=== PATIENT | male | born 1955 | race Caucasian/White ===

== ENCOUNTER 2019-12-09 15:42 | Inpatient (IN) | payer OTHER, SELFPAY ==
--- NOTE | ~2019-12-09 | CT_ITS ---
EXAMINATION: CT abdomen pelvis wo con DATE: 12/09/2019 19:25 INDICATION: Generalized abdominal pain TECHNIQUE: Computed tomography (CT) of the abdomen and pelvis was performed without intravenous contr ast. The dose-length product was 1687.28 mGy-cm. Automated exposure control and iterative reconstruct ion technique were employed. COMPARISON: No prior studies for comparison. FINDINGS: Lung bases are unremarkable. No significant pleural or pericardial effusion. Heart size nor mal. No significant vascular abnormality. No lymphadenopathy. There is bilateral perinephric and periureteral edema, suspicious for ascending urinary tract infecti on. Cannot exclude pyelonephritis. The liver, spleen, pancreas, adrenal glands are unremarkable. No h ydronephrosis. Bladder is unremarkable. No abnormal pelvic masses or fluid collections. No evidence f or appendicitis or diverticulitis. Gallbladder is present. No free air or free fluid. There are moderate degenerative changes of the lum bar spine and mild osteoarthritis of the hips. No acute osseous abnormality. IMPRESSION: 1. Bilateral perinephric and periureteral edema, suspicious for ascending urinary tract infection. Ca nnot exclude pyelonephritis. Reviewed, dictated and finalized at location A. TCHER IMPRESSION: 1. Bilateral perinephric and periureteral edema, suspicious for ascending urina ry tract infection. Cannot exclude pyelonephritis.
--- NOTE | ~2019-12-09 | US_ITS ---
EXAMINATION: US right upper quadrant EXAM DATE: 12/12/2019 09:55 INDICATION: Transaminitis. TECHNIQUE: Multiple grayscale and Doppler images of the abdomen right upper quadrant were obtained (b y a technologist who performed the scan) and subsequently reviewed. Correlation is made to CT abdomen 12/08/2019. FINDINGS: The pancreatic head and body are normal in appearance. The pancreatic tail is not visualized. The l iver has normal echogenicity and contour. There are no focal liver lesions identified. There is no evidence of intrahepatic biliary duct dilation. Portal venous flow was seen in the hepatopedal, nor mal direction and has normal Doppler waveform. No right-sided hydronephrosis. Common bile duct measures 5 mm, which is normal. The gallbladder wall is normal in thickness, with ex pected amount of distention. No sonographic evidence of pericholecystic fluid. There is no cholelit hiases. Technologist performing exam reports patient did not demonstrate sonographic Sands's sign. Please note that this sign is less reliable in patients who have received pain medication. IMPRESSION: 1. Unremarkable abdominal ultrasound exam. Reviewed, dictated and finalized at location A. ANIC FOREMAN
--- NOTE | ~2019-12-09 | XR_ITS ---
EXAMINATION: XR chest 2V 12/09/2019 18:10 INDICATION: Chills. Low-grade fever. PROCEDURE: 2 view chest COMPARISON: No prior studies for comparison. FINDINGS: The lungs are clear. The cardiomediastinal silhouette is within normal limits. There are no pleural effusions. There is no pneumothorax suspected. IMPRESSION: 1: NO ACUTE CARDIOPULMONARY DISEASE. Reviewed, dictated and finalized at location A. ERAGE MANAGER
--- NOTE | ~2019-12-09 | US_ITS ---
EXAMINATION: US renal BI EXAM DATE: 12/15/2019 08:50 INDICATION: Elevated creatinine. TECHNIQUE: Multiple grayscale and Doppler images of the kidneys were obtained (by a technologist who performed the scan) and subsequently reviewed. There is no prior study for comparison. FINDINGS: Right kidney: There is normal contour and echogenicity. It measures 14.6 x 6.5 x 6.5 centimeters. T here are no focal renal lesions identified. There is no hydronephrosis. Left kidney: There is normal contour and echogenicity. It measures 14.1 x 6.6 x 6.0 centimeters. Th ere are no focal renal lesions identified. There is no hydronephrosis. Bladder unremarkable. IMPRESSION: 1. Sonographically unremarkable kidneys. Reviewed, dictated and finalized at location A. ATIONAL REVIEW SERGEANT
[2019-12-09 15:59] VITALS: BP 215/80; PULSE 100; RESP 20; TEMP 37.8; O2SAT 97
--- NOTE | 2019-12-09 17:19 | ECG_ITS ---
Measurements Intervals [place] Rate: 97 P: -9 IA: 187 QRS: -3 QRSD: 177 T: -14 QT: 411 QTc: 524 Interpretive Statements SINUS RHYTHM RIGHT BUNDLE BRANCH BLOCK INFERIOR INFARCT, AGE INDETERMINATE ABNORMAL ECG Electronically Signed On 12-10-2019 7:59:04 TRANSPORTATION ASSOCIATE by Tom Heath D.O.
[2019-12-09 17:37] LABS: Basophils Absolute Auto 0.1 K/mm3 (0.0-0.1); Basophils Percent Auto 0.7 % (0.2-1.2); Eosinophils Absolute Auto 0.2 K/mm3 (0-0.3); Eosinophils Percent Auto 1.2 % (0-4.4); Hematocrit 37.5 % (42.0-52.0); Hemoglobin 12.6 g/dL (14.0-18.0); Immature Granulocyte Absolute 0.82 K/mm3 (0.00-0.031); Immature Granulocyte Percent A 5.1 % (0-0.5); Lymphocytes Percent Auto 8.7 % (18.3-44.2); Mean Corpuscular HGB Conc 33.6 g/dl (32-36); Mean Corpuscular Hemoglobin 28.6 pg (26-34); Mean Corpuscular Volume 85.2 fl (80-100); Mean Platelet Volume 9.2 fl (7.4-10.4); Monocytes Absolute Auto 1.7 K/mm3 (0.1-0.6); Monocytes Percent Auto 10.8 % (2.6-8.5); Neutrophils Absolute Auto 11.8 K/mm3 (1.3-6.7); Neutrophils Percent Auto 73.5 % (45.5-73.1); Platelet Count Result 222 k/mm3 (150-375); Red Cell Distribution Width 15.1 % (11.5-14.5)
[2019-12-09 17:54] LABS: Add Urine Microscopic? YES; Appearance Urine Cloudy (Clear); Bacteria Urine 3+ /hpf; Bilirubin Urine Negative (Negative); Blood Urine 3+ (Negative); Color Urine Yellow (Yellow); Glucose Urine UA Negative (Negative); Ketones Urine Negative (Negative); Leukocyte Esterase Ur 3+ LEU/UL (Negative); Mucus Urine Rare /lpf; Nitrate Urine Negative (Negative); Protein Urine 2+ mg/dL (Negative); RBC Urine >75 /hpf (0-2); Specific Grav Ur 1.016 (1.001-1.035); Squamous Epithelial Cell Urine Rare /hpf (Few); WBC Urine >75 /hpf
[2019-12-09 17:58] LABS: Alanine Aminotransferase 59 U/L (4-50); Albumin Level 3.5 g/dL (3.5-5.1); Alkaline Phosphatase 252 U/L (38-126); Aspartate Amino Transferase 60 U/L (17-59); Bilirubin,Total 1.8 mg/dL (0.2-1.3); Blood Urea Nitrogen 65 mg/dL (9-20); Calcium 9.4 mg/dL (8.4-10.2); Carbon Dioxide 19 mmol/L (22-30); Chloride 96 mmol/L (98-107); Estimated CRCL calculation 20 ml/min; Estimated Glomerular Filt Rate 11; Glucose 221 mg/dL (75-110); Potassium 4.9 mmol/L (3.4-5.0); Sodium 130 mmol/L (137-145)
--- NOTE | 2019-12-09 18:28 | ED.GENADULT ---
HPI - General Adult General Chief complaint: Unspecified Stated complaint: bodyaches Time Seen by Provider: 12/09/19 18:26 Source: patient and RN notes reviewed Mode of arrival: other Limitations: no limitations History of Present Illness HPI narrative: Pt is a 64 y/o male who presents to the ED with c/o severe body aches that began several days ago. Pt notes that his sx are aggravated by moving his body. He notes that his sx are the worst pain in his life. Pt states that if he leans forward, he feels like he is going to rupture. Pt notes that Thursday (12/04/19) morning, he woke up with chills and he put on extra clothes and blankets but could not warm up. He notes that Thursday (12/04/19) he drank a small glass of water with his medication and he vomited. Pt was recently started on Januvia d/t his A1C being elevated in October 2019. 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 Pt states that he has been drinking 5 Hour Energy drinks to get through the shifts and he drinks about 6-8 of the energy drinks per shift. He notes that he drinks lots of water. Pt had a kidney US in May 2019, but he has not heard the results. Pt also reports increased urinary frequency, urinary urgency, urinary retention, dry mouth, lower back pain, neck pain, bilateral shoulder pain, pain with inspiration, and otalgia, but denies SOB, nausea, diarrhea, cough, and dark colored urine. MD complaint: Body aches Onset (ago): day(s) (several) Pain Consistency: constant Associated symptoms: nausea/vomiting and other ( increased urinary frequency, urinary urgency, urinary retention, dry mouth, lower back pain, neck pain, bilateral shoulder pain, pain with inspiration, otalgia) Related Data Home Medications Medication Instructions Recorded Confirmed B Complex 100 mg BYMOUTH DAILY 12/09/19 12/09/19 ascorbic acid (vitamin C) 1 g PO DAILY 12/09/19 12/09/19 glimepiride 2 mg PO BID 12/09/19 12/09/19 lisinopril 20 mg PO DAILY 12/09/19 12/09/19 meloxicam 15 mg HS 12/09/19 12/09/19 metformin 1,000 mg PO BID 12/09/19 12/09/19 omeprazole 20 mg PO DAILY 12/09/19 12/09/19 sitagliptin [Januvia] 100 mg PO DAILY 12/09/19 12/09/19 vit F-xzkcwfae-redclgniknu 800 mg PO DAILY 12/09/19 12/09/19 Allergies Allergy/AdvReac Type Severity Reaction Status Date / Time amoxicillin [From Augmentin] Allergy Rash Verified 12/09/19 22:38 clavulanic acid Allergy Rash Verified 12/09/19 22:38 [From Augmentin] Review of Systems Review of Systems: All systems reviewed & are unremarkable except as noted in HPI and below ENT: Reports dry mouth, Reports otalgia and Reports neck pain Respiratory: Respiratory: Denies cough, Reports pain on inspiration and Denies dyspnea Gastrointestinal: Gastrointestinal: Denies diarrhea, Denies nausea and Reports vomiting Genitourinary: Genitourinary: Reports urinary frequency (increased), Reports urinary urgency and Reports other (Reports: urinary retention; Denies: dark colored urine) Musculoskeletal: Musculoskeletal: Reports back pain (lower), Reports myalgias and Reports other (bilateral shoulder pain) [facility] Past Medical History Medical History Arthritis Left inguinal hernia Peripheral neuropathy Staph infection left leg Type II diabetes mellitus Surgical History Surgical History Hx of tonsillectomy Family History Family History Father Hypertension Renal disease Other Family history of arthritis Family history of gout Social History Social History Smoking status: Never smoker Alcohol intake: never Drinks per week: 0 Gender identity (if verbalized by the patient): Male Spiritual care concerns: No Agree to blood products: Yes Exam Const: General: no acute distress, diaphoretic and ill appearing Nutri
[2019-12-09 19:01] LABS: Creatine Kinase 27 U/L (55-170)
[2019-12-09 19:29] LABS: Lactic Acid Reflex 0.9 mmol/L (0.7-2.1)
--- NOTE | 2019-12-09 19:32 | PC.NURSE ---
assumed care of patient. pt on the way to ct at this time, no needs stated
[2019-12-09 19:42] VITALS: BP 169/92; PULSE 96; RESP 16; TEMP 36.1; O2SAT 97
[2019-12-09] MEDS: SODIUM CHLORIDE 0.9% IV 1,000 ML 999 ML IV CONT (20:00)
--- NOTE | 2019-12-09 21:32 | PM.IMHP ---
H&P: HPI History of Present Illness Chief complaint: Body aches++ Narrative: This is a pleasant 64 year old Diabetic male who presented to the hospital with a complaint of chills, fever, and diffuse body aches since this past weekend. The patient woke up Thursday morning with severe chills and body aches. He also has noticed increased urinary urgency, frequency, and has developed mild dysuria. He denies any rashes, chest pain, or cough. He has diffuse pain with any movement. He denies any diarrhea, nausea, vomiting, rectal bleeding, or shortness of breath. He was evaluated in the ER tonight and found to be septic with fever and leukocytosis. His urinalysis was grossly abnormal. CT abd/pelvis demonstrated biilateral perinephric and periureteral edema. The patient was started on antibiotics and we have been asked to admit him to the hospital. He denies any other symptoms tonight. Review of Systems Review of Systems: All systems reviewed & are unremarkable except as noted in HPI and below PMFSH Past Medical History Medical History Arthritis Left inguinal hernia Peripheral neuropathy Staph infection left leg Type II diabetes mellitus Surgical History Surgical History Hx of tonsillectomy Family History Family History Father Hypertension Renal disease Other Family history of arthritis Family history of gout Social History Social History Smoking status: Never smoker Alcohol intake: never Drinks per week: 0 Gender identity (if verbalized by the patient): Male Spiritual care concerns: No Agree to blood products: Yes Meds Home Medications and Allergies Home Medications Medication Instructions Recorded Confirmed Type B Complex 100 mg BYMOUTH DAILY 12/09/19 12/09/19 History ascorbic acid (vitamin C) 1 g PO DAILY 12/09/19 12/09/19 History glimepiride 2 mg PO BID 12/09/19 12/09/19 History lisinopril 20 mg PO DAILY 12/09/19 12/09/19 History meloxicam 15 mg HS 12/09/19 12/09/19 History metformin 1,000 mg PO BID 12/09/19 12/09/19 History omeprazole 20 mg PO DAILY 12/09/19 12/09/19 History sitagliptin [Januvia] 100 mg PO DAILY 12/09/19 12/09/19 History vit B-jsnpwzkh-qwelekvcguy 800 mg PO DAILY 12/09/19 12/09/19 History Allergies Allergy/AdvReac Type Severity Reaction Status Date / Time amoxicillin [From Augmentin] Allergy Rash Verified 12/09/19 22:38 clavulanic acid Allergy Rash Verified 12/09/19 22:38 [From Augmentin] Vital Signs Vital Signs - 24 hr 12/09/19 15:59 12/09/19 19:42 Temperature 37.8 C H 36.1 C L Pulse Rate 100 96 Respiratory Rate 20 16 Blood Pressure 215/80 H 169/92 H Pulse Oximetry 97 97 Exam Const: General: cooperative, alert, awake and ill appearing Nutritional Appearance: obese morbidly obese Orientation/consciousness: patient oriented x3 HENMT: Head: normal to inspection General nose exam: Normal external nose present Face and sinus: normal facial exam Mouth: Yes Normal oral and palatal mucosa present and Yes oropharynx normal Eyes: Pupils: Equal, round and reactive pupils present EOM: EOMs intact bilaterally Neck: Neck: supple and no JVD Thyroid: thyroid normal Lymphatic: lymphadenopathy not noted Resp: Effort & Inspection: normal respiratory effort Auscultation: clear to auscultation bilaterally Cardio: Rate: regular rate Rhythm: regular rhythm Heart sounds: no murmurs GI: Inspection: normal to inspection Auscultation: normal bowel sounds Skin: General skin exam: normal color and no rashes or lesions noted Neuro: General: patient oriented x3 Cranial nerves: Yes CN's II-XII intact bilaterally and Yes Equal, round and reactive pupils present Speech: normal speech Motor exam (neuro): 5/5 motor strength present throughout Se
[2019-12-09 21:47] VITALS: BP 187/77; PULSE 98; RESP 18; TEMP 36.8; O2SAT 99
[2019-12-09 21:50] VITALS: BMI 47.1
--- NOTE | 2019-12-09 22:23 | ADMGEN ---
This patient, Nik Chan, was admitted to Medical Room 348-01. Patient/family oriented to hospital policies and general routines including ID bracelet, bed and alarms, visiting hours, pain management, procedures, bathroom and other care routines, personal items, smoking policy, room service/diet, and visiting hours. Valuables list has been completed. Information on how to activate the Rapid Response Team has been discussed. Patient/Family are encouraged to report perceived risks to care and to ask questions if they do not understand what they are told or what they should do.
[2019-12-09] MEDS: SODIUM CHLORIDE 0.9% IV 1,000 ML 125 ML IV CONT (23:23)
[2019-12-10 05:05] VITALS: RESP 18; TEMP 36.6
[2019-12-10 05:08] VITALS: BP 186/89; PULSE 97; RESP 18; TEMP 36.6; O2SAT 98
[2019-12-10] MEDS: hydrALAZINE HCL 20 MG/ML VIAL 10 MG IV PUSH ×2 (05:53→13:27)
[2019-12-10 06:05] LABS: Basophils Absolute Auto 0.1 K/mm3 (0.0-0.1); Basophils Percent Auto 0.5 % (0.2-1.2); Eosinophils Absolute Auto 0.1 K/mm3 (0-0.3); Eosinophils Percent Auto 0.6 % (0-4.4); Hematocrit 37.7 % (42.0-52.0); Hemoglobin 12.8 g/dL (14.0-18.0); Immature Granulocyte Percent A 5.4 % (0-0.5); Lymphocytes Absolute Auto 2.53 K/mm3 (0.9-3.2); Lymphocytes Percent Auto 13.7 % (18.3-44.2); Mean Corpuscular Hemoglobin 28.8 pg (26-34); Mean Corpuscular Volume 84.9 fl (80-100); Monocytes Percent Auto 10.6 % (2.6-8.5); Neutrophils Absolute Auto 12.8 K/mm3 (1.3-6.7); Neutrophils Percent Auto 69.2 % (45.5-73.1); Platelet Count Result 223 k/mm3 (150-375); Red Blood Count 4.44 M/mm3 (4.6-6.20); Red Cell Distribution Width 15.2 % (11.5-14.5); White Blood Count 18.5 K/mm3 (4.5-10.0)
[2019-12-10 06:25] LABS: Alanine Aminotransferase 60 U/L (4-50); Albumin Level 3.5 g/dL (3.5-5.1); Alkaline Phosphatase 213 U/L (38-126); Aspartate Amino Transferase 61 U/L (17-59); Bilirubin,Total 1.7 mg/dL (0.2-1.3); Blood Urea Nitrogen 63 mg/dL (9-20); Calcium 9.2 mg/dL (8.4-10.2); Carbon Dioxide 19 mmol/L (22-30); Chloride 97 mmol/L (98-107); Estimated CRCL calculation 21 ml/min; Estimated Glomerular Filt Rate 11; Glucose 81 mg/dL (75-110); Potassium 4.5 mmol/L (3.4-5.0); Sodium 132 mmol/L (137-145)
[2019-12-10] MEDS: SODIUM CHLORIDE 0.9% IV 1,000 ML 125 ML IV CONT ×3 (07:34→23:56)
[2019-12-10 07:40] VITALS: BP 182/81; PULSE 97; RESP 18; TEMP 36.6; O2SAT 100
[2019-12-10] MEDS: ACETAMINOPHEN 325 MG TABLET 650 MG PO ×2 (08:09→23:59)
[2019-12-10] MEDS: ENOXAPARIN 30 MG/0.3 ML SYRINGE SUB-Q (08:23)
[2019-12-10] MEDS: ASCORBIC ACID 500 MG TABLET 1000 MG PO (08:24)
[2019-12-10] MEDS: VITAMIN B COMPLEX CAPSULE 1 CAP PO (08:24)
[2019-12-10] MEDS: PANTOPRAZOLE 40 MG TABLET PO (08:24)
--- NOTE | 2019-12-10 08:57 | PM.IMPN ---
Progress Note: A&P Assessment and Plan (1) Complicated UTI (urinary tract infection): Code(s): N39.0 - Urinary tract infection, site not specified Status: Acute Assessment and Plan: WBC slightly increased this morning 18.5k today. Continue IV antibiotics IV fluid hydration for now Monitor urine output. Urine culture and blood cultures pending. (2) Sepsis: Qualifiers: Sepsis type: sepsis due to unspecified organism Sepsis acute organ dysfunction status: with acute organ dysfunction Severe sepsis acute organ dysfunction type: acute renal failure Acute renal failure type: unspecified Severe sepsis shock status: without septic shock Qualified Code(s): A41.9 - Sepsis, unspecified organism; R65.20 - Severe sepsis without septic shock; N17.9 - Acute kidney failure, unspecified Code(s): A41.9 - Sepsis, unspecified organism Status: Acute Assessment and Plan: Source appears to be urinary. Continue IV antibiotics. Urine and blood cultures pending. Monitor vital signs and urine output closely. (3) Leukocytosis: Qualifiers: Leukocytosis type: unspecified Qualified Code(s): D72.829 - Elevated white blood cell count, unspecified Code(s): D72.829 - Elevated white blood cell count, unspecified Status: Acute Assessment and Plan: Secondary to sepsis and UTI. WBC slightly elevated to 18.5k today Monitor CBCd. (4) Acute renal failure: Qualifiers: Acute renal failure type: unspecified Qualified Code(s): N17.9 - Acute kidney failure, unspecified Code(s): N17.9 - Acute kidney failure, unspecified Status: Acute Assessment and Plan: Likely secondary to poor perfusion. Cr slowly improving to 5.20 today. Continue IV fluids Consider renal ultrasound and nephrology consultation if no improvement/plateaued. Avoid nephrotoxic agents, Renally dose medications. (5) Transaminitis: Code(s): R74.0 - Nonspecific elevation of levels of transaminase and lactic acid dehydrogenase [LDH] Status: Acute Assessment and Plan: Likely secondary to sepsis. LFTs stable this morning Monitor LFTs. Consider checking hepatitis panel and RUQ ultrasound if liver enzymes do not improve. (6) Normocytic anemia: Code(s): D64.9 - Anemia, unspecified Status: Chronic Assessment and Plan: Likely anemia of chronic disease. No signs of acute blood loss. H&H stable at 12.8/37.7 Monitor H/H transfuse prn. (7) Metabolic acidosis with increased anion gap and reduced excretion of inorganic acids: Code(s): E87.2 - Acidosis Status: Acute Assessment and Plan: Secondary to acute renal failure and sepsis. Monitor acid-base status. (8) Type II diabetes mellitus: Qualifiers: Diabetes mellitus fpc insulin use: with terminal computer operator use Diabetes mellitus complication status: without complication Qualified Code(s): E11.9 - Type 2 diabetes mellitus without complications; Z79.4 - penitentiary (current) use of insulin Code(s): E11.9 - Type 2 diabetes mellitus without complications Status: Chronic Assessment and Plan: BGL 81 this morning. No acute issues Accuchecks ACHS, SSI Coverage, hypoglycemic protocol. Hold metformin secondary to acute renal failure. Monitor closely (9) Hypertension: Code(s): I10 - Essential (primary) hypertension Status: Acute Assessment and Plan: BP 180s systolic Hold home lisinopril due to ARF IV Hydralazine PRN Monitor closely If ARF improves, consider resuming lisinopril Additional P
[2019-12-10 09:34] LABS: Glucose Point of Care 91 (65-105)
[2019-12-10 12:30] LABS: Glucose Point of Care 121 (65-105)
[2019-12-10 13:22] VITALS: BP 195/92; PULSE 85; RESP 22; TEMP 36.6; O2SAT 98
[2019-12-10 13:53] LABS: Hematocrit 34.7 % (42.0-52.0); Hemoglobin 11.7 g/dL (14.0-18.0); Mean Corpuscular HGB Conc 33.7 g/dl (32-36); Mean Corpuscular Hemoglobin 28.9 pg (26-34); Mean Corpuscular Volume 85.7 fl (80-100); Mean Platelet Volume 9.4 fl (7.4-10.4); Platelet Count Result 212 k/mm3 (150-375); Red Blood Count 4.05 M/mm3 (4.6-6.20); Red Cell Distribution Width 15.4 % (11.5-14.5); White Blood Count 14.4 K/mm3 (4.5-10.0)
[2019-12-10 14:05] LABS: Alanine Aminotransferase 60 U/L (4-50); Albumin Level 3.3 g/dL (3.5-5.1); Alkaline Phosphatase 188 U/L (38-126); Aspartate Amino Transferase 63 U/L (17-59); Bilirubin,Total 1.5 mg/dL (0.2-1.3); Blood Urea Nitrogen 63 mg/dL (9-20); Calcium 8.9 mg/dL (8.4-10.2); Carbon Dioxide 18 mmol/L (22-30); Chloride 99 mmol/L (98-107); Estimated CRCL calculation 22 ml/min; Estimated Glomerular Filt Rate 12; Glucose 92 mg/dL (75-110); Potassium 4.5 mmol/L (3.4-5.0); Sodium 132 mmol/L (137-145)
[2019-12-10 14:42] VITALS: BP 167/79; PULSE 90; TEMP 36.2
[2019-12-10] MEDS: LORATADINE 10 MG TABLET PO (14:46)
[2019-12-10] MEDS: AMLODIPINE BESYLATE 5 MG TABLET PO (14:46)
[2019-12-10] MEDS: TRAMADOL HCL 50 MG TABLET PO ×2 (15:15→20:25)
[2019-12-10 15:35] LABS: Anisocytosis 2+ (NORMAL); Band Neutrophils Percent 3 % (0-6); Eosinophils Absolute Manual 0.28 K/mm3 (0.02-0.5); Eosinophils Percent Manual 2 % (0-4); Monocytes Absolute Manual 0.57 K/mm3 (0.1-0.90); Monocytes Percent Manual 4 % (3-9); Neutrophils Absolute Manual 11.23 K/mm3 (1.3-6.7); Neutrophils Percent Manual 75 % (46-73); Platelet Estimate Adequate (Adequate); Total Cells Counted 100
[2019-12-10 17:45] LABS: Glucose Point of Care 114 (65-105)
[2019-12-10 21:44] LABS: Glucose Point of Care 83 (65-105)
[2019-12-10 22:00] VITALS: BP 173/76; PULSE 96; RESP 16; TEMP 36.8; O2SAT 97
[2019-12-11] VITALS (8 sets, daily range): BP systolic 155–181; BP diastolic 70–81; PULSE 90–99; RESP 16–22; TEMP 36.6–36.7; O2SAT 97–98
[2019-12-11 06:01] LABS: Hematocrit 34.1 % (42.0-52.0); Hemoglobin 11.3 g/dL (14.0-18.0); Mean Corpuscular HGB Conc 33.1 g/dl (32-36); Mean Corpuscular Hemoglobin 28.5 pg (26-34); Mean Corpuscular Volume 86.1 fl (80-100); Mean Platelet Volume 9.3 fl (7.4-10.4); Platelet Count Result 229 k/mm3 (150-375); Red Blood Count 3.96 M/mm3 (4.6-6.20); Red Cell Distribution Width 15.7 % (11.5-14.5); White Blood Count 15.5 K/mm3 (4.5-10.0)
[2019-12-11 06:11] LABS: Alanine Aminotransferase 60 U/L (4-50); Albumin Level 3.1 g/dL (3.5-5.1); Alkaline Phosphatase 176 U/L (38-126); Aspartate Amino Transferase 56 U/L (17-59); Bilirubin,Total 1.2 mg/dL (0.2-1.3); Blood Urea Nitrogen 62 mg/dL (9-20); Calcium 8.1 mg/dL (8.4-10.2); Carbon Dioxide 16 mmol/L (22-30); Chloride 103 mmol/L (98-107); Estimated CRCL calculation 26 ml/min; Estimated Glomerular Filt Rate 14; Glucose 67 mg/dL (75-110); Magnesium 1.9 mg/dL (1.6-2.3); Potassium 4.5 mmol/L (3.4-5.0); Sodium 133 mmol/L (137-145)
[2019-12-11 07:10] LABS: Band Neutrophils Percent 5 % (0-6); Lymphocytes Absolute Manual 1.55 K/mm3 (1.1-4.5); Monocytes Absolute Manual 0.62 K/mm3 (0.1-0.90); Monocytes Percent Manual 4 % (3-9); Neutrophils Absolute Manual 13.33 K/mm3 (1.3-6.7); Neutrophils Percent Manual 81 % (46-73); Total Cells Counted 100
[2019-12-11 07:11] LABS: Anisocytosis 1+ (NORMAL); Platelet Estimate Adequate (Adequate)
[2019-12-11] MEDS: TRAMADOL HCL 50 MG TABLET PO (07:58)
[2019-12-11] MEDS: SODIUM CHLORIDE 0.9% IV 1,000 ML 125 ML IV CONT ×2 (08:00→18:35)
[2019-12-11] MEDS: ASCORBIC ACID 500 MG TABLET 1000 MG PO (08:10)
[2019-12-11] MEDS: LORATADINE 10 MG TABLET PO (08:10)
[2019-12-11] MEDS: PANTOPRAZOLE 40 MG TABLET PO (08:10)
[2019-12-11] MEDS: hydrALAZINE HCL 20 MG/ML VIAL 10 MG IV PUSH ×3 (08:11→22:34)
[2019-12-11] MEDS: ENOXAPARIN 30 MG/0.3 ML SYRINGE SUB-Q (08:11)
[2019-12-11] MEDS: AMLODIPINE BESYLATE 5 MG TABLET PO (08:11)
[2019-12-11] MEDS: VITAMIN B COMPLEX CAPSULE 1 CAP PO (08:11)
[2019-12-11 08:22] LABS: Glucose Point of Care 70 (65-105)
--- NOTE | 2019-12-11 11:40 | PM.IMPN ---
Progress Note: A&P Assessment and Plan (1) Complicated UTI (urinary tract infection): Code(s): N39.0 - Urinary tract infection, site not specified Status: Acute Assessment and Plan: WBC went from 14.4k yesterday afternoon to 15.5k this morning. UC grew E. Coli; gamble-sensitive including Rocephin. Blood cultures grew gram negative bacilli Continue IV antibiotics IV fluid hydration for now, decreased to 75 ml/hr. consider stopping tomorrow Monitor urine output. (2) Sepsis: Qualifiers: Sepsis type: sepsis due to unspecified organism Sepsis acute organ dysfunction status: with acute organ dysfunction Severe sepsis acute organ dysfunction type: acute renal failure Acute renal failure type: unspecified Severe sepsis shock status: without septic shock Qualified Code(s): A41.9 - Sepsis, unspecified organism; R65.20 - Severe sepsis without septic shock; N17.9 - Acute kidney failure, unspecified Code(s): A41.9 - Sepsis, unspecified organism Status: Acute Assessment and Plan: Source appears to be urinary. Continue IV antibiotics, IVF Monitor vital signs and urine output closely. (3) Leukocytosis: Qualifiers: Leukocytosis type: unspecified Qualified Code(s): D72.829 - Elevated white blood cell count, unspecified Code(s): D72.829 - Elevated white blood cell count, unspecified Status: Acute Assessment and Plan: Secondary to sepsis and UTI. WBC 15.5k today Monitor CBCd. (4) Acute renal failure: Qualifiers: Acute renal failure type: unspecified Qualified Code(s): N17.9 - Acute kidney failure, unspecified Code(s): N17.9 - Acute kidney failure, unspecified Status: Acute Assessment and Plan: Likely secondary to poor perfusion. Cr slowly improving to 4.20 today, slow improvement Continue IV fluids Consider renal ultrasound and nephrology consultation if no improvement/plateaued. Avoid nephrotoxic agents, Renally dose medications. Lisinopril held at this time - monitor BP (5) Transaminitis: Code(s): R74.0 - Nonspecific elevation of levels of transaminase and lactic acid dehydrogenase [LDH] Status: Acute Assessment and Plan: Likely secondary to sepsis. LFTs slightly improved Monitor LFTs. Consider checking hepatitis panel and RUQ ultrasound if liver enzymes do not improve. (6) Normocytic anemia: Code(s): D64.9 - Anemia, unspecified Status: Chronic Assessment and Plan: Likely anemia of chronic disease. No signs of acute blood loss. H&H stable at 11.3/34.1; lowered likely due to dilutional effect from IVF Monitor H/H transfuse prn. (7) Metabolic acidosis with increased anion gap and reduced excretion of inorganic acids: Code(s): E87.2 - Acidosis Status: Acute Assessment and Plan: Secondary to acute renal failure and sepsis. Monitor acid-base status. (8) Type II diabetes mellitus: Qualifiers: Diabetes mellitus termite treater helper insulin use: with usp use Diabetes mellitus complication status: without complication Qualified Code(s): E11.9 - Type 2 diabetes mellitus without complications; Z79.4 - oysterman (current) use of insulin Code(s): E11.9 - Type 2 diabetes mellitus without complications Status: Chronic Assessment and Plan: BGL 81 this morning. No acute issues Accuchecks ACHS, SSI Coverage, hypoglycemic protocol. Hold metformin secondary to acute renal failure. Monitor closely (9) Hypertension: Code(s): I10 - Essential (primary) hypertension Status: Acute Assessment and Plan: BP 150-170s systolic
[2019-12-11 11:43] LABS: Glucose Point of Care 78 (65-105)
[2019-12-11 11:43] LABS: Glucose Point of Care 65 (65-105)
[2019-12-11 11:43] LABS: Glucose Point of Care 68 (65-105)
[2019-12-11] MEDS: TAMSULOSIN HCL 0.4 MG CAPSULE PO (12:05)
[2019-12-11 16:51] LABS: Glucose Point of Care 91 (65-105)
[2019-12-11 18:59] LABS: Glucose Point of Care 132 (65-105)
[2019-12-11 23:19] LABS: Glucose Point of Care 137 (65-105)
[2019-12-12 01:35] VITALS: TEMP 37.7
[2019-12-12] MEDS: TRAMADOL HCL 50 MG TABLET PO (02:32)
[2019-12-12 06:00] VITALS: BP 151/73; PULSE 100; RESP 16; TEMP 36.2; O2SAT 97
[2019-12-12 07:27] LABS: Basophils Absolute Auto 0.1 K/mm3 (0.0-0.1); Basophils Percent Auto 0.4 % (0.2-1.2); Eosinophils Absolute Auto 0.2 K/mm3 (0-0.3); Eosinophils Percent Auto 1.2 % (0-4.4); Hematocrit 34.9 % (42.0-52.0); Hemoglobin 11.8 g/dL (14.0-18.0); Immature Granulocyte Absolute 0.74 K/mm3 (0.00-0.031); Immature Granulocyte Percent A 5.3 % (0-0.5); Lymphocytes Absolute Auto 1.57 K/mm3 (0.9-3.2); Lymphocytes Percent Auto 11.2 % (18.3-44.2); Mean Corpuscular HGB Conc 33.8 g/dl (32-36); Mean Corpuscular Hemoglobin 28.9 pg (26-34); Mean Corpuscular Volume 85.5 fl (80-100); Monocytes Percent Auto 7.3 % (2.6-8.5); Neutrophils Absolute Auto 10.5 K/mm3 (1.3-6.7); Neutrophils Percent Auto 74.6 % (45.5-73.1); Platelet Count Result 270 k/mm3 (150-375); Red Blood Count 4.08 M/mm3 (4.6-6.20); Red Cell Distribution Width 15.5 % (11.5-14.5)
[2019-12-12 07:30] LABS: Alanine Aminotransferase 62 U/L (4-50); Albumin Level 3.4 g/dL (3.5-5.1); Alkaline Phosphatase 218 U/L (38-126); Aspartate Amino Transferase 47 U/L (17-59); Blood Urea Nitrogen 54 mg/dL (9-20); Calcium 8.6 mg/dL (8.4-10.2); Carbon Dioxide 16 mmol/L (22-30); Chloride 103 mmol/L (98-107); Estimated CRCL calculation 32 ml/min; Estimated Glomerular Filt Rate 18; Glucose 155 mg/dL (75-110); Sodium 133 mmol/L (137-145)
[2019-12-12 08:32] LABS: Hepatitis B Surface Antigen Negative (Negative)
[2019-12-12 08:38] LABS: HAV RESULT Negative (Negative); Hepatitis B Core IgM Result Negative (Negative)
[2019-12-12] MEDS: SODIUM CHLORIDE 0.9% IV 1,000 ML 125 ML IV CONT (08:49)
[2019-12-12 08:50] LABS: Hepatitis C Virus Antibody Negative (Negative)
[2019-12-12] MEDS: VITAMIN B COMPLEX CAPSULE 1 CAP PO (10:24)
[2019-12-12] MEDS: ASCORBIC ACID 500 MG TABLET 1000 MG PO (10:24)
[2019-12-12] MEDS: PANTOPRAZOLE 40 MG TABLET PO (10:24)
[2019-12-12] MEDS: AMLODIPINE BESYLATE 5 MG TABLET PO (10:25)
[2019-12-12] MEDS: LORATADINE 10 MG TABLET PO (10:25)
[2019-12-12] MEDS: TAMSULOSIN HCL 0.4 MG CAPSULE PO (10:25)
[2019-12-12] MEDS: ENOXAPARIN 30 MG/0.3 ML SYRINGE SUB-Q (10:25)
[2019-12-12 10:47] LABS: Glucose Point of Care 136 (65-105)
--- NOTE | 2019-12-12 11:27 | P.PNIM_ITS ---
Progress Note: A&P Assessment and Plan (1) Complicated UTI (urinary tract infection): Code(s): N39.0 - Urinary tract infection, site not specified Status: Acute Assessment and Plan: WBC down to 14.0k this morning. UC and one bottle of BC grew E. Coli; gamble- sensitive including Rocephin * Continue IV antibiotics for now; consider 1-2 more days IV antibiotics and switching to oral abx to complete treatment * IVF stopped today. Drinking water okay. * Monitor urine output. Urine output has been adequate thus far (2) Sepsis: Qualifiers: Sepsis type: sepsis due to unspecified organism Sepsis acute organ dysfunction status: with acute organ dysfunction Severe sepsis acute organ dysfunction type: acute renal failure Acute renal failure type: unspecified Severe sepsis shock status: without septic shock Qualified Code(s): A41.9 - Sepsis, unspecified organism; R65.20 - Severe sepsis without septic shock; N17.9 - Acute kidney failure, unspecified Code(s): A41.9 - Sepsis, unspecified organism Status: Acute Assessment and Plan: Source appears to be urinary. * Continue IV antibiotics. IVF stopped today * Monitor vital signs and urine output closely. (3) Leukocytosis: Qualifiers: Leukocytosis type: unspecified Qualified Code(s): D72.829 - Elevated white blood cell count, unspecified Code(s): D72.829 - Elevated white blood cell count, unspecified Status: Acute Assessment and Plan: Secondary to sepsis and UTI. WBC 14.0k today * Monitor CBCd. (4) Acute renal failure: Qualifiers: Acute renal failure type: unspecified Qualified Code(s): N17.9 - Acute kidney failure, unspecified Code(s): N17.9 - Acute kidney failure, unspecified Status: Acute Assessment and Plan: Likely secondary to poor perfusion. Cr slowly improving to 3.40 today, slow improvement * Encouraged PO fluids. Consider resuming if worsening Cr or plateaued * Consider renal ultrasound and nephrology consultation if no improvement/plateaued. * Avoid nephrotoxic agents, Renally dose medications. * Lisinopril held at this time - monitor BP (5) Transaminitis: Code(s): R74.0 - Nonspecific elevation of levels of transaminase and lactic acid d ehydrogenase [LDH] Status: Acute Assessment and Plan: Likely secondary to sepsis. LFTs slightly improved * Monitor LFTs. * US RUQ is unremarkable; hepatitis panel negative * Likely follow up with PCP if no improvement by discharge (6) Normocytic anemia: Code(s): D64.9 - Anemia, unspecified Status: Chronic Assessment and Plan: Likely anemia of chronic disease. No signs of acute blood loss. H&H stable at 11.8/34.9 * Monitor H/H * transfuse prn. (7) Metabolic acidosis with increased anion gap and reduced excretion of inorganic acids: Code(s): E87.2 - Acidosis Status: Acute Assessment and Plan: Secondary to acute renal failure and sepsis. * Monitor acid-base status. (8) Type II diabetes mellitus: Qualifiers: Diabetes mellitus vermin exterminator insulin use: with vermin exterminator use Diabetes mellitus complication status: without complication Qualified Code(s): E11.9 - Type 2 diabetes mellitus without complications; Z79.4 - exterminator (current) use of insulin Co
--- NOTE | 2019-12-12 11:27 | PM.IMPN ---
Progress Note: A&P Assessment and Plan (1) Complicated UTI (urinary tract infection): Code(s): N39.0 - Urinary tract infection, site not specified Status: Acute Assessment and Plan: WBC down to 14.0k this morning. UC and one bottle of BC grew E. Coli; gamble-sensitive including Rocephin Continue IV antibiotics for now; consider 1-2 more days IV antibiotics and switching to oral abx to complete treatment IVF stopped today. Drinking water okay. Monitor urine output. Urine output has been adequate thus far (2) Sepsis: Qualifiers: Sepsis type: sepsis due to unspecified organism Sepsis acute organ dysfunction status: with acute organ dysfunction Severe sepsis acute organ dysfunction type: acute renal failure Acute renal failure type: unspecified Severe sepsis shock status: without septic shock Qualified Code(s): A41.9 - Sepsis, unspecified organism; R65.20 - Severe sepsis without septic shock; N17.9 - Acute kidney failure, unspecified Code(s): A41.9 - Sepsis, unspecified organism Status: Acute Assessment and Plan: Source appears to be urinary. Continue IV antibiotics. IVF stopped today Monitor vital signs and urine output closely. (3) Leukocytosis: Qualifiers: Leukocytosis type: unspecified Qualified Code(s): D72.829 - Elevated white blood cell count, unspecified Code(s): D72.829 - Elevated white blood cell count, unspecified Status: Acute Assessment and Plan: Secondary to sepsis and UTI. WBC 14.0k today Monitor CBCd. (4) Acute renal failure: Qualifiers: Acute renal failure type: unspecified Qualified Code(s): N17.9 - Acute kidney failure, unspecified Code(s): N17.9 - Acute kidney failure, unspecified Status: Acute Assessment and Plan: Likely secondary to poor perfusion. Cr slowly improving to 3.40 today, slow improvement Encouraged PO fluids. Consider resuming if worsening Cr or plateaued Consider renal ultrasound and nephrology consultation if no improvement/plateaued. Avoid nephrotoxic agents, Renally dose medications. Lisinopril held at this time - monitor BP (5) Transaminitis: Code(s): R74.0 - Nonspecific elevation of levels of transaminase and lactic acid dehydrogenase [LDH] Status: Acute Assessment and Plan: Likely secondary to sepsis. LFTs slightly improved Monitor LFTs. US RUQ is unremarkable; hepatitis panel negative Likely follow up with PCP if no improvement by discharge (6) Normocytic anemia: Code(s): D64.9 - Anemia, unspecified Status: Chronic Assessment and Plan: Likely anemia of chronic disease. No signs of acute blood loss. H&H stable at 11.8/34.9 Monitor H/H transfuse prn. (7) Metabolic acidosis with increased anion gap and reduced excretion of inorganic acids: Code(s): E87.2 - Acidosis Status: Acute Assessment and Plan: Secondary to acute renal failure and sepsis. Monitor acid-base status. (8) Type II diabetes mellitus: Qualifiers: Diabetes mellitus long term care social worker insulin use: with alf use Diabetes mellitus complication status: without complication Qualified Code(s): E11.9 - Type 2 diabetes mellitus without complications; Z79.4 - truck terminal manager (current) use of insulin Code(s): E11.9 - Type 2 diabetes mellitus without complications Status: Chronic Assessment and Plan: BGL 136 this morning. No acute issues Accuchecks ACHS, SSI Coverage, hypoglycemic protocol. Hold metformin secondary to acute renal failure. Monitor closely (9) Hypertension: Code(s): I10 - Essential (primary) hypert
[2019-12-12 13:02] LABS: Glucose Point of Care 166 (65-105)
[2019-12-12 14:00] VITALS: BP 151/76; PULSE 94; RESP 16; TEMP 36.4; O2SAT 97
[2019-12-12 18:26] LABS: Glucose Point of Care 146 (65-105)
[2019-12-12 22:00] VITALS: BP 156/69; PULSE 91; RESP 16; TEMP 37; O2SAT 98
[2019-12-12 22:07] LABS: Glucose Point of Care 223 (65-105)
[2019-12-13 06:00] VITALS: BP 165/77; PULSE 94; RESP 16; TEMP 36.8; O2SAT 97
[2019-12-13] MEDS: ACETAMINOPHEN 325 MG TABLET 650 MG PO (06:58)
[2019-12-13 07:37] LABS: Basophils Absolute Auto 0.1 K/mm3 (0.0-0.1); Basophils Percent Auto 0.6 % (0.2-1.2); Eosinophils Absolute Auto 0.2 K/mm3 (0-0.3); Eosinophils Percent Auto 1.4 % (0-4.4); Hematocrit 33.3 % (42.0-52.0); Hemoglobin 11.2 g/dL (14.0-18.0); Immature Granulocyte Absolute 0.55 K/mm3 (0.00-0.031); Immature Granulocyte Percent A 3.9 % (0-0.5); Lymphocytes Absolute Auto 1.74 K/mm3 (0.9-3.2); Lymphocytes Percent Auto 12.3 % (18.3-44.2); Mean Corpuscular HGB Conc 33.6 g/dl (32-36); Mean Corpuscular Hemoglobin 29.6 pg (26-34); Mean Corpuscular Volume 87.9 fl (80-100); Mean Platelet Volume 8.9 fl (7.4-10.4); Monocytes Percent Auto 7.2 % (2.6-8.5); Neutrophils Absolute Auto 10.5 K/mm3 (1.3-6.7); Neutrophils Percent Auto 74.6 % (45.5-73.1); Platelet Count Result 300 k/mm3 (150-375); Red Blood Count 3.79 M/mm3 (4.6-6.20); Red Cell Distribution Width 15.6 % (11.5-14.5); White Blood Count 14.1 K/mm3 (4.5-10.0)
[2019-12-13 07:38] LABS: Alanine Aminotransferase 48 U/L (4-50); Albumin Level 3.2 g/dL (3.5-5.1); Alkaline Phosphatase 196 U/L (38-126); Aspartate Amino Transferase 32 U/L (17-59); Bilirubin,Total 0.8 mg/dL (0.2-1.3); Blood Urea Nitrogen 50 mg/dL (9-20); Calcium 8.9 mg/dL (8.4-10.2); Carbon Dioxide 18 mmol/L (22-30); Chloride 102 mmol/L (98-107); Estimated CRCL calculation 40 ml/min; Estimated Glomerular Filt Rate 24; Glucose 171 mg/dL (75-110); Potassium 4.8 mmol/L (3.4-5.0); Sodium 131 mmol/L (137-145)
[2019-12-13 08:14] LABS: Glucose Point of Care 165 (65-105)
[2019-12-13] MEDS: LORATADINE 10 MG TABLET PO (08:36)
[2019-12-13] MEDS: TAMSULOSIN HCL 0.4 MG CAPSULE PO (08:36)
[2019-12-13] MEDS: PANTOPRAZOLE 40 MG TABLET PO (08:36)
[2019-12-13] MEDS: ENOXAPARIN 30 MG/0.3 ML SYRINGE SUB-Q (08:36)
[2019-12-13] MEDS: VITAMIN B COMPLEX CAPSULE 1 CAP PO (08:36)
[2019-12-13] MEDS: AMLODIPINE BESYLATE 5 MG TABLET PO (08:36)
[2019-12-13] MEDS: ASCORBIC ACID 500 MG TABLET 1000 MG PO (08:37)
[2019-12-13] MEDS: INSULIN ASPART (*BKC) 100 UNITS/ML SUB-Q ×2 (12:44→18:34)
[2019-12-13 13:00] LABS: Glucose Point of Care 220 (65-105)
[2019-12-13] MEDS: SODIUM CHLORIDE NASAL GEL 14.1 GM 1 APPLIC NASAL (14:22)
[2019-12-13 15:00] VITALS: BP 166/72; PULSE 85; RESP 20; TEMP 36.2; O2SAT 98
--- NOTE | 2019-12-13 16:11 | PM.IMPN ---
Progress Note: A&P Assessment and Plan (1) Sepsis: Qualifiers: Sepsis type: sepsis due to unspecified organism Sepsis acute organ dysfunction status: with acute organ dysfunction Severe sepsis acute organ dysfunction type: acute renal failure Acute renal failure type: unspecified Severe sepsis shock status: without septic shock Qualified Code(s): A41.9 - Sepsis, unspecified organism; R65.20 - Severe sepsis without septic shock; N17.9 - Acute kidney failure, unspecified Code(s): A41.9 - Sepsis, unspecified organism Status: Acute Assessment and Plan: Source appears to be urinary. Continue IV antibiotics. Normal vitals, other than leukocytosis still. Afebrile, nontachycardic, normal RR and oxygenation and slightly elevated BP. Monitor vital signs and urine output closely. (2) Complicated UTI (urinary tract infection): Code(s): N39.0 - Urinary tract infection, site not specified Status: Acute Assessment and Plan: WBC stable at 14,100 this morning. UC and one bottle of BC grew E. Coli; gamble-sensitive including Rocephin Continue IV antibiotics for now; Day #5, consider 1-2 more days IV antibiotics and switching to oral abx to complete treatment In the last 24 hours he has drank 8,220 mL of fluids. Monitor urine output. Urine output has been adequate thus far (3) Acute renal failure: Qualifiers: Acute renal failure type: unspecified Qualified Code(s): N17.9 - Acute kidney failure, unspecified Code(s): N17.9 - Acute kidney failure, unspecified Status: Acute Assessment and Plan: Likely secondary to poor perfusion. Cr slowly improving to 2.70 today, continued improvement Encouraged PO fluids. Consider renal ultrasound and nephrology consultation if no improvement/plateaued. Avoid nephrotoxic agents, Renally dose medications. Lisinopril held at this time - monitor BP (4) Leukocytosis: Qualifiers: Leukocytosis type: unspecified Qualified Code(s): D72.829 - Elevated white blood cell count, unspecified Code(s): D72.829 - Elevated white blood cell count, unspecified Status: Acute Assessment and Plan: Secondary to sepsis and UTI. Still elevated at WBC 14,100 today. Continue IV antibiotics. Monitor CBCd. (5) Metabolic acidosis with increased anion gap and reduced excretion of inorganic acids: Code(s): E87.2 - Acidosis Status: Acute Assessment and Plan: Secondary to acute renal failure and sepsis. Monitor acid-base status. (6) Transaminitis: Code(s): R74.0 - Nonspecific elevation of levels of transaminase and lactic acid dehydrogenase [LDH] Status: Acute Assessment and Plan: Likely secondary to sepsis. LFTs slightly improved AST/ALT normalized. Alk Phos still slightly elevated at 196. Monitor LFTs. US RUQ is unremarkable; hepatitis panel negative Likely follow up with PCP if no improvement by discharge (7) Normocytic anemia: Code(s): D64.9 - Anemia, unspecified Status: Chronic Assessment and Plan: Likely anemia of chronic disease. No signs of acute blood loss. H&H stable at 11.2/33.3% Monitor H/H transfuse prn. (8) Type II diabetes mellitus: Qualifiers: Diabetes mellitus terminal gauger insulin use: with terminal gauger use Diabetes mellitus complication status: without complication Qualified Code(s): E11.9 - Type 2 diabetes mellitus without complications; Z79.4 - FPC (current) use of insulin Code(s): E11.9 - Type 2 diabetes mellitus without complications Status: Chronic Assessment and Plan: BGL 171 this morning. No acute issues Hold metformi
[2019-12-13 18:20] LABS: Glucose Point of Care 266 (65-105)
[2019-12-13 20:17] VITALS: BP 181/65; PULSE 86; RESP 16; TEMP 36.4; O2SAT 98
[2019-12-13 20:23] VITALS: BP 151/61
[2019-12-13 21:36] LABS: Glucose Point of Care 250 (65-105)
[2019-12-14 04:51] VITALS: BP 156/69; PULSE 91; RESP 16; TEMP 36.4; O2SAT 97
[2019-12-14 06:18] LABS: Alanine Aminotransferase 47 U/L (4-50); Albumin Level 3.4 g/dL (3.5-5.1); Alkaline Phosphatase 193 U/L (38-126); Aspartate Amino Transferase 30 U/L (17-59); Bilirubin,Total 0.7 mg/dL (0.2-1.3); Blood Urea Nitrogen 49 mg/dL (9-20); Calcium 8.7 mg/dL (8.4-10.2); Carbon Dioxide 19 mmol/L (22-30); Chloride 103 mmol/L (98-107); Estimated CRCL calculation 45 ml/min; Estimated Glomerular Filt Rate 28; Glucose 185 mg/dL (75-110); Potassium 4.8 mmol/L (3.4-5.0); Sodium 133 mmol/L (137-145)
[2019-12-14 06:19] LABS: Basophils Absolute Auto 0.1 K/mm3 (0.0-0.1); Basophils Percent Auto 0.4 % (0.2-1.2); Eosinophils Absolute Auto 0.3 K/mm3 (0-0.3); Hematocrit 32.7 % (42.0-52.0); Hemoglobin 10.9 g/dL (14.0-18.0); Immature Granulocyte Absolute 0.36 K/mm3 (0.00-0.031); Immature Granulocyte Percent A 2.7 % (0-0.5); Lymphocytes Absolute Auto 1.79 K/mm3 (0.9-3.2); Lymphocytes Percent Auto 13.6 % (18.3-44.2); Mean Corpuscular HGB Conc 33.3 g/dl (32-36); Mean Corpuscular Hemoglobin 28.8 pg (26-34); Mean Corpuscular Volume 86.3 fl (80-100); Mean Platelet Volume 9.2 fl (7.4-10.4); Monocytes Percent Auto 7.7 % (2.6-8.5); Neutrophils Absolute Auto 9.7 K/mm3 (1.3-6.7); Neutrophils Percent Auto 73.6 % (45.5-73.1); Platelet Count Result 363 k/mm3 (150-375); Red Blood Count 3.79 M/mm3 (4.6-6.20); Red Cell Distribution Width 15.1 % (11.5-14.5); White Blood Count 13.2 K/mm3 (4.5-10.0)
[2019-12-14 06:33] LABS: Hemoglobin A1C 8.2 % (<5.7)
[2019-12-14] MEDS: ACETAMINOPHEN 325 MG TABLET 650 MG PO ×2 (09:16→13:45)
[2019-12-14] MEDS: ENOXAPARIN 30 MG/0.3 ML SYRINGE SUB-Q (09:16)
[2019-12-14] MEDS: AMLODIPINE BESYLATE 5 MG TABLET PO (09:18)
[2019-12-14] MEDS: LORATADINE 10 MG TABLET PO (09:18)
[2019-12-14] MEDS: ASCORBIC ACID 500 MG TABLET 1000 MG PO (09:18)
[2019-12-14] MEDS: PANTOPRAZOLE 40 MG TABLET PO (09:19)
[2019-12-14] MEDS: TAMSULOSIN HCL 0.4 MG CAPSULE PO ×2 (09:19→21:22)
[2019-12-14] MEDS: VITAMIN B COMPLEX CAPSULE 1 CAP PO (09:19)
[2019-12-14 10:35] LABS: Glucose Point of Care 176 (65-105)
[2019-12-14 12:58] LABS: Glucose Point of Care 251 (65-105)
[2019-12-14] MEDS: INSULIN ASPART (*BKC) 100 UNITS/ML SUB-Q ×2 (13:46→18:12)
[2019-12-14 14:00] VITALS: BP 152/65; PULSE 88; RESP 20; TEMP 36.4; O2SAT 95
--- NOTE | 2019-12-14 16:40 | PM.IMPN ---
Progress Note: A&P Assessment and Plan (1) Sepsis: Qualifiers: Acute renal failure type: unspecified Sepsis acute organ dysfunction status: with acute organ dysfunction Sepsis type: sepsis due to unspecified organism Severe sepsis acute organ dysfunction type: acute renal failure Severe sepsis shock status: without septic shock Qualified Code(s): A41.9 - Sepsis, unspecified organism; R65.20 - Severe sepsis without septic shock; N17.9 - Acute kidney failure, unspecified Code(s): A41.9 - Sepsis, unspecified organism Status: Acute Assessment and Plan: Source appears to be urinary. Continue IV antibiotics. Normal vitals, other than leukocytosis still. Afebrile, nontachycardic, normal RR and oxygenation and slightly elevated BP. Monitor vital signs and urine output closely. (2) Complicated UTI (urinary tract infection): Code(s): N39.0 - Urinary tract infection, site not specified Status: Acute Assessment and Plan: WBC decreased slightly to 13,200 this morning. UC and one bottle of BC grew E. Coli; gamble-sensitive including Rocephin Continue IV antibiotics for now; Day #6, consider 1-2 more days IV antibiotics and switching to oral abx to complete treatment In the last 24 hours he has drank 6,280 mL of fluids. Monitor urine output. Urine output has been adequate thus far (3) Acute renal failure: Qualifiers: Acute renal failure type: unspecified Qualified Code(s): N17.9 - Acute kidney failure, unspecified Code(s): N17.9 - Acute kidney failure, unspecified Status: Acute Assessment and Plan: Likely secondary to poor perfusion. Cr slowly improving to 2.40 today, continued improvement Encouraged PO fluids. Nephrology was consulted and ordered a renal US and further kidney testing. Avoid nephrotoxic agents, Renally dose medications. Lisinopril held at this time - monitor BP (4) Leukocytosis: Qualifiers: Leukocytosis type: unspecified Qualified Code(s): D72.829 - Elevated white blood cell count, unspecified Code(s): D72.829 - Elevated white blood cell count, unspecified Status: Acute Assessment and Plan: Secondary to sepsis and UTI. Still elevated at WBC 13,200 today. Continue IV antibiotics. Monitor CBCd. (5) Metabolic acidosis with increased anion gap and reduced excretion of inorganic acids: Code(s): E87.2 - Acidosis Status: Acute Assessment and Plan: Secondary to acute renal failure and sepsis. Monitor acid-base status. (6) Transaminitis: Code(s): R74.0 - Nonspecific elevation of levels of transaminase and lactic acid dehydrogenase [LDH] Status: Acute Assessment and Plan: Likely secondary to sepsis. LFTs slightly improved AST/ALT normalized. Alk Phos still slightly elevated at 193. Monitor LFTs. US RUQ is unremarkable; hepatitis panel negative Likely follow up with PCP if no improvement by discharge (7) Normocytic anemia: Code(s): D64.9 - Anemia, unspecified Status: Chronic Assessment and Plan: Likely anemia of chronic disease. No signs of acute blood loss. H&H stable at 10.2/32.7% Contniue monitor H/H. Transfuse prn. (8) Type II diabetes mellitus: Qualifiers: Diabetes mellitus complication status: without complication Diabetes mellitus fpc insulin use: with meterman use Qualified Code(s): E11.9 - Type 2 diabetes mellitus without complications; Z79.4 - halfway (current) use of insulin Code(s): E11.9 - Type 2 diabetes mellitus without complications Status: Chronic Assessment and Plan: BGL 185 this morning. No acute issues
--- NOTE | 2019-12-14 16:48 | PM.CNNEP ---
Assessment and Plan Assessment and plan (1) Acute renal failure: Qualifiers: Acute renal failure type: unspecified Qualified Code(s): N17.9 - Acute kidney failure, unspecified Code(s): N17.9 - Acute kidney failure, unspecified Status: Acute Assessment and Plan: the patient has acute kidney injury. This is most likely due to infection. Urinary retention may be playing a role , however the CT did not show significant bladder distention or hydronephrosis. He did have bilateral changes consistent with Upper urinary tract infection. There are other causes of acute kidney injury however his renal function has improved with fluids and antibiotics so I do not think we need to look for other issues at this point. He did have proteinuria. This could come with an active urinary tract infection. However he should have evaluation for chronic diabetic nephropathy after this is all over. He does have nocturia which is substantial. He probably has benign prostatic hypertrophy. I will place him on tamsulosin and we can check a postvoid residual to see where we are with that. I talked with BRIJESH Garcia. I suggested that he should probably see a urologist as an outpatient. (2) Complicated UTI (urinary tract infection): Code(s): N39.0 - Urinary tract infection, site not specified Status: Acute Assessment and Plan: He grew E coli in blood in urine. He is on antibiotics. He feels better. (3) Metabolic acidosis with increased anion gap and reduced excretion of inorganic acids: Code(s): E87.2 - Acidosis Status: Acute Assessment and Plan: He has metabolic acidosis with no anion gap. This is probably due to a mild RTA from his pyelonephritis. He could have something chronic as well. We will reassess when he gets better. (4) Normocytic anemia: Code(s): D64.9 - Anemia, unspecified Status: Chronic Assessment and Plan: He has had anemia for a long time. Etiology for the chronic anemia is unclear. However it is worse now with infection. (5) Frequent urination: Code(s): R35.0 - Frequency of micturition Status: Acute Assessment and Plan: He probably has BPH as above. Will start on tamsulosin. History of Present Illness Reason for Consult Consult date: 12/14/19 Chief Complaint Chief complaint: Body aches++ History of Present Illness Narrative: Nik is a very pleasant 64-year-old gentleman who has multiple medical problems including hypertension, diabetes, chronic nocturia, obesity, snoring. The patient says that he typically gets up at night 4 or 5 times to urinate. In the last 3 weeks or so he has had significant urgency where if he does not get to the bathroom within a few seconds he might be incontinent. This gradually worsened. Then he developed fevers and came to the emergency room. He is found to have urosepsis. At that time his creatinine was 5. He was given IV fluids and antibiotics and gradually his creatinine has improved but not as quickly as would be liked so renal consultation was requested. He says he never did have pain with urination. He denies any chest pain or shortness of breath. No bloody urine, foamy urine, kidney stones. He does not have Swelling as a rule however he has a little bit of swelling now with these IV fluids. He has diabetes. He has had this for some time now. He has hypertension which he has had for many years. It has been well controlled. He snores heavily he says but he is never been tested for sleep apnea. Review of Systems Constitutional: Constitutional: Reports no additional constitutional complaints Eyes: Eyes: Reports no additional eye complaints ENT: Reports system reviewed and no additional complaints, except as documented Cardiovascular: Cardiovascular: Reports no additional cardiovascular complaints Respiratory: Respiratory: Reports no
[2019-12-14 18:33] LABS: Glucose Point of Care 209 (65-105)
[2019-12-14 20:00] VITALS: PULSE 84; RESP 18; O2SAT 100
[2019-12-14 20:12] VITALS: BP 156/76; PULSE 84; RESP 18; TEMP 36.1; O2SAT 100
[2019-12-14 21:44] LABS: Total Protein Urine Random 19 mg/dL
[2019-12-14 21:46] LABS: Sodium Urine Random 53 meq/L
[2019-12-14 22:53] LABS: Glucose Point of Care 282 (65-105)
[2019-12-15 06:00] VITALS: BP 152/76; PULSE 95; RESP 16; TEMP 36.9; O2SAT 96
[2019-12-15 06:22] LABS: Basophils Absolute Auto 0.1 K/mm3 (0.0-0.1); Basophils Percent Auto 0.5 % (0.2-1.2); Eosinophils Absolute Auto 0.3 K/mm3 (0-0.3); Eosinophils Percent Auto 2.3 % (0-4.4); Hematocrit 34.8 % (42.0-52.0); Hemoglobin 11.4 g/dL (14.0-18.0); Immature Granulocyte Absolute 0.22 K/mm3 (0.00-0.031); Lymphocytes Absolute Auto 1.92 K/mm3 (0.9-3.2); Lymphocytes Percent Auto 17.5 % (18.3-44.2); Mean Corpuscular HGB Conc 32.8 g/dl (32-36); Mean Corpuscular Hemoglobin 28.4 pg (26-34); Mean Corpuscular Volume 86.8 fl (80-100); Monocytes Absolute Auto 0.9 K/mm3 (0.1-0.6); Monocytes Percent Auto 8.5 % (2.6-8.5); Neutrophils Absolute Auto 7.6 K/mm3 (1.3-6.7); Neutrophils Percent Auto 69.2 % (45.5-73.1); Platelet Count Result 427 k/mm3 (150-375); Red Blood Count 4.01 M/mm3 (4.6-6.20); Red Cell Distribution Width 14.7 % (11.5-14.5)
[2019-12-15 06:34] LABS: Albumin Level 3.6 g/dL (3.5-5.1); Blood Urea Nitrogen 47 mg/dL (9-20); Carbon Dioxide 20 mmol/L (22-30); Chloride 99 mmol/L (98-107); Estimated CRCL calculation 49 ml/min; Estimated Glomerular Filt Rate 30; Glucose 288 mg/dL (75-110); Phosphorus 4.4 mg/dL (2.5-4.5); Potassium 5.2 mmol/L (3.4-5.0); Sodium 133 mmol/L (137-145)
[2019-12-15] MEDS: ACETAMINOPHEN 325 MG TABLET 650 MG PO (08:22)
[2019-12-15] MEDS: AMLODIPINE BESYLATE 5 MG TABLET PO (08:23)
[2019-12-15] MEDS: LORATADINE 10 MG TABLET PO (08:23)
[2019-12-15] MEDS: ASCORBIC ACID 500 MG TABLET 1000 MG PO (08:23)
[2019-12-15] MEDS: PANTOPRAZOLE 40 MG TABLET PO (08:23)
[2019-12-15] MEDS: VITAMIN B COMPLEX CAPSULE 1 CAP PO (08:24)
[2019-12-15] MEDS: ENOXAPARIN 30 MG/0.3 ML SYRINGE SUB-Q (08:24)
[2019-12-15 10:15] LABS: Glucose Point of Care 226 (65-105)
[2019-12-15] MEDS: INSULIN ASPART (*BKC) 100 UNITS/ML SUB-Q (11:33)
[2019-12-15] MEDS: SODIUM POLYSTYRENE SULFONONATE 15 GM/60 ML BTL PO (11:33)
--- NOTE | 2019-12-15 11:35 | PM.DS ---
DS: Diagnosis Admitting Diagnosis Admitting Diagnosis: Urinary tract infection, site not specified Discharge Diagnosis (1) Sepsis: Qualifiers: Acute renal failure type: unspecified Sepsis acute organ dysfunction status: with acute organ dysfunction Sepsis type: sepsis due to unspecified organism Severe sepsis acute organ dysfunction type: acute renal failure Severe sepsis shock status: without septic shock Qualified Code(s): A41.9 - Sepsis, unspecified organism; R65.20 - Severe sepsis without septic shock; N17.9 - Acute kidney failure, unspecified Code(s): A41.9 - Sepsis, unspecified organism Status: Acute Assessment and Plan: Source appears to be urinary, UTI and pyelonephritis Normal vitals, other than leukocytosis still but improving at 11,000. Afebrile, nontachycardic, normal RR and oxygenation and slightly elevated BP. The patient is feeling much better today and asymptomatic. (2) Complicated UTI (urinary tract infection): Code(s): N39.0 - Urinary tract infection, site not specified Status: Acute Assessment and Plan: WBC decreased to 11,000 this morning. UC and one bottle of BC grew E. Coli; gamble-sensitive including Rocephin Continue IV antibiotics for now; Day #6 and will discharge the patient on Cefdinir 300 mg Q12hrs for 4 days for a total of 10 days of treatment for Pyelonephritis and UTI. Nephrology started the patient on Flomax for possible Urinary Retention issues and could be the cause of UTI. Will have him follow up with PCP and possibly needs referral to Urology if still having urinary issues. (3) Acute renal failure: Qualifiers: Acute renal failure type: unspecified Qualified Code(s): N17.9 - Acute kidney failure, unspecified Code(s): N17.9 - Acute kidney failure, unspecified Status: Acute Assessment and Plan: Likely secondary to poor perfusion, UTI, sepsis. Cr slowly improving to 2.20 today, continued improvement Encouraged PO fluids. Nephrology was consulted and ordered a renal US which showed normal kidneys, no hydronephrosis or other abnormality. Avoid nephrotoxic agents, Renally dose medications. We will continue to hold Lisinopril until restarted by PCP once renal function normalizes. I recommended checking his BP twice daily. Will recheck BMP in 1 week and have him follow up with PCP as an outpatient. (4) Leukocytosis: Qualifiers: Leukocytosis type: unspecified Qualified Code(s): D72.829 - Elevated white blood cell count, unspecified Code(s): D72.829 - Elevated white blood cell count, unspecified Status: Acute Assessment and Plan: Secondary to sepsis and UTI. Improved to 11,000 today. Continue PO antibiotics. (5) Metabolic acidosis with increased anion gap and reduced excretion of inorganic acids: Code(s): E87.2 - Acidosis Status: Acute Assessment and Plan: Secondary to acute renal failure and sepsis. (6) Transaminitis: Code(s): R74.0 - Nonspecific elevation of levels of transaminase and lactic acid dehydrogenase [LDH] Status: Acute Assessment and Plan: Likely secondary to sepsis. LFTs slightly improved AST/ALT normalized. Alk Phos still slightly elevated. Monitor LFTs. US RUQ is unremarkable; hepatitis panel negative Likely follow up with PCP if no improvement by discharge (7) Normocytic anemia: Code(s): D64.9 - Anemia, unspecified Status: Chronic Assessment and Plan: Likely anemia of chronic disease. No signs of acute blood loss. H&H stable at 11.4/34.8% (8) Type II diabetes mellitus: Qualifiers: Diabetes mellitus c
[2019-12-15 14:00] VITALS: BP 149/78; PULSE 91; RESP 22; TEMP 36.4; O2SAT 99
--- NOTE | 2019-12-15 16:35 | PC.NURSE ---
Spoke with patient and during discharge. I educated him on the importance of blood sugar checks at least five times daily, and checking blood pressures 1 to 2 times daily. Patient stated that he does have a glucose monitor at his home, and will try to check it. I reinforced the importance of diet control and blood sugar checks until he sees his primary in a week or two. Verbalized understanding.
== END 2019-12-15 16:35 | disposition home or self-care (01) | DRG 872 ==
LOC: ANHED 20:26 → ANH3MED 20:29
PROVIDERS: Emergency Medicine; Internal Medicine Nephrology; Physician Assistant; Admitting Provider Family Medicine; Emergency Provider Emergency Medicine; PCP Family Medicine Adolescent Medicine; Visit Provider Physician Assistant
DX: A41.51 Sepsis due to Escherichia coli [E. coli] (principal); N10 Acute pyelonephritis; N17.9 Acute kidney failure, unspecified; E87.2 Acidosis; E87.1 Hypo-osmolality and hyponatremia; Z68.42 Body mass index [BMI] 45.0-49.9, adult; B96.20 Unspecified Escherichia coli [E. coli] as the cause of diseases classified elsewhere; R65.20 Severe sepsis without septic shock; E11.42 Type 2 diabetes mellitus with diabetic polyneuropathy; D72.829 Elevated white blood cell count, unspecified; D63.8 Anemia in other chronic diseases classified elsewhere; R33.9 Retention of urine, unspecified; I10 Essential (primary) hypertension; M19.90 Unspecified osteoarthritis, unspecified site; E66.01 Morbid (severe) obesity due to excess calories; Z79.4 Long term (current) use of insulin; N40.0 Benign prostatic hyperplasia without lower urinary tract symptoms
CPT/HCPCS: 36415; 71046; 74176; 76705; 76775; 80053; 80069; 80074; 81001; 82550; 82570; 83036; 83605; 83735; 84156; 84300; 85025; 87040; 87077; 87086; 87088; 87186; 87804; 93005; 96365; 99291; A9270; J0360; J0696; J1650; J1815; J7030

== ENCOUNTER 2019-12-22 09:03 | Outpatient (CLI) | payer OTHER, SELFPAY ==
[2019-12-22 09:39] LABS: Hemoglobin 11.3 g/dL (14.0-18.0); Mean Corpuscular HGB Conc 33.2 g/dl (32-36); Mean Corpuscular Hemoglobin 28.5 pg (26-34); Mean Corpuscular Volume 85.9 fl (80-100); Mean Platelet Volume 8.9 fl (7.4-10.4); Platelet Count Result 526 k/mm3 (150-375); Red Blood Count 3.96 M/mm3 (4.6-6.20); Red Cell Distribution Width 13.4 % (11.5-14.5); White Blood Count 7.5 K/mm3 (4.5-10.0)
[2019-12-22 10:42] LABS: Alanine Aminotransferase 29 U/L (4-50); Albumin Level 3.8 g/dL (3.5-5.1); Alkaline Phosphatase 251 U/L (38-126); Aspartate Amino Transferase 23 U/L (17-59); Bilirubin,Total 0.4 mg/dL (0.2-1.3); Blood Urea Nitrogen 28 mg/dL (9-20); Calcium 9.6 mg/dL (8.4-10.2); Carbon Dioxide 27 mmol/L (22-30); Chloride 91 mmol/L (98-107); Estimated Glomerular Filt Rate 44; Glucose 543 mg/dL (75-110); Potassium 5.1 mmol/L (3.4-5.0); Sodium 131 mmol/L (137-145)
== END 2019-12-22 09:04 | disposition home or self-care (01) ==
PROVIDERS: PCP Family Medicine Adolescent Medicine; Visit Provider Physician Assistant
DX: D72.829 Elevated white blood cell count, unspecified (principal); E87.2 Acidosis; N17.9 Acute kidney failure, unspecified; E11.9 Type 2 diabetes mellitus without complications; N39.0 Urinary tract infection, site not specified; R74.0 Nonspecific elevation of levels of transaminase and lactic acid dehydrogenase [LDH]; Z79.84 Long term (current) use of oral hypoglycemic drugs
CPT/HCPCS: 36415; 80053; 85027

== ENCOUNTER 2020-02-19 18:33 | Inpatient (IN) | payer OTHER, SELFPAY ==
--- NOTE | ~2020-02-19 | XR_ITS ---
EXAMINATION: XR chest 1V portable 02/19/2020 18:57 INDICATION: Shortness of breath. Hypertension. PROCEDURE: AP portable chest COMPARISON: 12/09/2019 FINDINGS: The lungs are clear. The cardiomediastinal silhouette is within normal limits. There are no pleural effusions. There is no pneumothorax suspected. 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 IMPRESSION: 1: NO ACUTE CARDIOPULMONARY DISEASE. Reviewed, dictated and finalized at location A.
[2020-02-19 18:37] VITALS: PULSE 103; RESP 34; TEMP 37.6; O2SAT 99
--- NOTE | 2020-02-19 18:46 | ECG_ITS ---
Measurements Intervals [place] Rate: 103 P: 247 OH: 242 QRS: -30 QRSD: 146 T: 5 QT: 378 QTc: 497 Interpretive Statements SINUS TACHYCARDIA RIGHT BUNDLE BRANCH BLOCK INFERIOR INFARCT, AGE INDETERMINATE BASELINE ARTIFACT- I, II, III, AVR, AVL, AVF, V1-V4 ABNORMAL ECG Electronically Signed On 02-20-2020 7:10:36 CDT by Tom Heath D.O.
[2020-02-19 18:48] VITALS: O2SAT 100
--- NOTE | 2020-02-19 18:52 | ED.SOB ---
HPI - SOB/Dyspnea General Chief Complaint: Shortness of Breath/Dyspnea Stated Complaint: tremors/infections? Time Seen by Provider: 02/19/20 18:45 Source: patient and family Limitations: no limitations History of Present Illness HPI Narrative: 64 years old white male, morbidly obese history of chronic left lower back pain, hypertension, diabetes, renal insufficiency and peripheral neuropathy. Patient does not smoke or drink. 1-1/2-hour prior to arrival to the emergency room patient developed chills, freezing-like feeling, and not feeling well. Patient had similar symptoms in the past secondary to cellulitis or urinary tract infection. In the ambulance patient developed slight shortness of breath, thinking about coronavirus infection. Patient denies any headache, nausea, vomiting, diarrhea, abdominal pain, chest pain, sore throat, exposure to anybody with coronavirus infection. Patient lives at home with his has been indoors FOR weeks. Currently patient main complaint is left lower back pain which is old, gets worse with movement. patient denies bowel dysfunction, bladder dysfunction, altered sensation, focal weakness, or saddle numbness, Related Data Home Medications Medication Instructions Recorded Confirmed B Complex 100 mg BYMOUTH DAILY 12/09/19 12/09/19 ascorbic acid (vitamin C) 1 g PO DAILY 12/09/19 12/09/19 glimepiride 2 mg PO BID 12/09/19 12/09/19 lisinopril 20 mg PO DAILY 12/09/19 12/09/19 meloxicam 15 mg HS 12/09/19 12/09/19 metformin 1,000 mg PO BID 12/09/19 12/09/19 omeprazole 20 mg PO DAILY 12/09/19 12/09/19 vit T-tcudvvsy-rwjwjjdyxcm 800 mg PO DAILY 12/09/19 12/09/19 Allergies Allergy/AdvReac Type Severity Reaction Status Date / Time amoxicillin [From Augmentin] Allergy Rash Verified 02/19/20 18:44 clavulanic acid Allergy Rash Verified 02/19/20 18:44 [From Augmentin] Review of Systems Review of Systems: Narrative: CONSTITUTIONAL: Denies fever, chills, or sweats. EYES: Denies visual changes, redness, or discharge. ENT: Denies rhinorrhea, congestion, sore throat, or otalgia. CARDIOVASCULAR: Denies chest pain, palpitations, or edema. RESPIRATORY: Denies cough or dyspnea. GASTROINTESTINAL: Denies abdominal pain, nausea, vomiting, or diarrhea. GENITOURINARY: Denies dysuria or hematuria. SKIN: Denies rash or itching. MUSCULOSKELETAL: Left lower back pain NEUROLOGIC: Denies headache, numbness, or weakness. PSYCHIATRIC: Denies anxiety or depression. All systems reviewed & are unremarkable except as noted in HPI and below PMFSH Past Medical History Medical History Arthritis Frequent urination Hypertension Left inguinal hernia Peripheral neuropathy Staph infection left leg Type II diabetes mellitus Surgical History Surgical History Hx of tonsillectomy Family History Family History Father Hypertension Renal disease Other Family history of arthritis Family history of gout Social History Social History Smoking status: Never smoker Alcohol intake: never Drinks per week: 0 Gender identity (if verbalized by the patient): Male Spiritual care concerns: No Agree to blood products: Yes Exam Narrative: Exam Narrative: General appearance: Well-developed, well-nourished, morbidly obese, at the bedside, does not look in pain or respiratory distress Skin: Normal color Head: Normocephalic, nontraumatic Eyes: Clear conjunctiva ENT: Oropharynx normal, ears normal, nose normal Neck: Supple, nontender Chest and respiratory: Airway patent, no respiratory distress, no accessory muscle use Heart: Regular rate/rhythm Abdomen: Soft, nontender, no organomegaly, quiet bowel sounds Vascular: Normal peripheral pulses, normal capillary refill. Musculoskeletal: Normal range of motion, n
[2020-02-19 18:53] VITALS: BP 128/51; PULSE 105; RESP 24
[2020-02-19 19:05] LABS: Basophils Percent Auto 0.5 % (0.2-1.2); Eosinophils Absolute Auto 0.1 K/mm3 (0-0.3); Eosinophils Percent Auto 1.5 % (0-4.4); Hematocrit 38.2 % (42.0-52.0); Hemoglobin 12.7 g/dL (14.0-18.0); Immature Granulocyte Absolute 0.09 K/mm3 (0.00-0.031); Immature Granulocyte Percent A 1.1 % (0-0.5); Lymphocytes Absolute Auto 2.25 K/mm3 (0.9-3.2); Lymphocytes Percent Auto 26.4 % (18.3-44.2); Mean Corpuscular HGB Conc 33.2 g/dl (32-36); Mean Corpuscular Hemoglobin 29.7 pg (26-34); Mean Corpuscular Volume 89.5 fl (80-100); Mean Platelet Volume 8.5 fl (7.4-10.4); Monocytes Absolute Auto 0.1 K/mm3 (0.1-0.6); Monocytes Percent Auto 0.6 % (2.6-8.5); Neutrophils Percent Auto 69.9 % (45.5-73.1); Platelet Count Result 314 k/mm3 (150-375); Red Blood Count 4.27 M/mm3 (4.6-6.20); Red Cell Distribution Width 14.4 % (11.5-14.5); White Blood Count 8.5 K/mm3 (4.5-10.0)
[2020-02-19] MEDS: ONDANSETRON INJ 4 MG/2 ML VIAL IV PUSH (19:15)
[2020-02-19 19:17] LABS: Alanine Aminotransferase 20 U/L (4-50); Albumin Level 4.3 g/dL (3.5-5.1); Alkaline Phosphatase 119 U/L (38-126); Aspartate Amino Transferase 21 U/L (17-59); Bilirubin,Total 0.5 mg/dL (0.2-1.3); Blood Urea Nitrogen 21 mg/dL (9-20); Calcium 8.8 mg/dL (8.4-10.2); Carbon Dioxide 22 mmol/L (22-30); Chloride 103 mmol/L (98-107); D Dimer 0.85 ug/mL (<0.48); Estimated CRCL calculation 62 ml/min; Estimated Glomerular Filt Rate 41; Glucose 196 mg/dL (75-110); Potassium 4.3 mmol/L (3.4-5.0); Sodium 138 mmol/L (137-145)
[2020-02-19] MEDS: MORPHINE SULFATE 4 MG/ML INJ IV PUSH (19:17)
[2020-02-19 19:18] LABS: Magnesium 1.6 mg/dL (1.6-2.3)
[2020-02-19 19:25] LABS: Lactic Acid Reflex 4.4 mmol/L (0.7-2.1)
[2020-02-19 19:27] LABS: NT Pro B Type Natriuretic Pept 91 PG/ML (5-100)
[2020-02-19 19:29] LABS: Troponin I < 0.012 ng/mL (0.000-0.034)
[2020-02-19] MEDS: SODIUM CHLORIDE 0.9% IV 1,000 ML 999 ML IV CONT ×2 (19:45→19:47)
[2020-02-19 20:50] VITALS: BP 142/73; PULSE 102; RESP 18; O2SAT 97
[2020-02-19 21:21] VITALS: TEMP 37.8
[2020-02-19 21:25] LABS: Add Urine Microscopic? YES; Amorphous Sediment Urine Few; Appearance Urine Cloudy (Clear); Bacteria Urine 4+ /hpf; Bilirubin Urine Negative (Negative); Blood Urine Negative (Negative); Color Urine Yellow (Yellow); Glucose Urine UA Negative (Negative); Ketones Urine Negative (Negative); Leukocyte Esterase Ur 3+ LEU/UL (Negative); Mucus Urine Rare /lpf; Nitrate Urine Negative (Negative); Protein Urine 2+ mg/dL (Negative); Specific Grav Ur 1.018 (1.001-1.035); Squamous Epithelial Cell Urine Occasional /hpf (Few); WBC Clumps Urine Present /HPF; WBC Urine >75 /hpf
[2020-02-19 22:02] LABS: Reflex Lactic Acid Yes or No Add Lactic
[2020-02-19 22:33] LABS: Lactic Acid 2.2 mmol/L (0.7-2.1)
--- NOTE | 2020-02-19 23:16 | ADMGEN ---
This patient, Nik Chan, was admitted to Medical Room 347-. Patient/family oriented to hospital policies and general routines including ID bracelet, bed and alarms, visiting hours, pain management, procedures, bathroom and other care routines, personal items, smoking policy, room service/diet, and visiting hours. Valuables list has been completed. Information on how to activate the Rapid Response Team has been discussed. Patient/Family are encouraged to report perceived risks to care and to ask questions if they do not understand what they are told or what they should do.
[2020-02-19 23:30] VITALS: BP 127/63; PULSE 94; RESP 18; TEMP 36.8; O2SAT 97
[2020-02-19] MEDS: SODIUM CHLORIDE 0.9% IV 1,000 ML 125 ML IV CONT (23:57)
[2020-02-20 00:01] VITALS: BMI 45.5
--- NOTE | 2020-02-20 00:53 | PM.IMHP ---
H&P: HPI History of Present Illness Chief complaint: UTI Narrative: This is a 64 year old Diabetic male well known to our Hospitalist service from a previous admission with CKD stage III, who returned to the hospital [facility] with a complaint of sudden onset of chills, fever and left lower back pain. He is known to have had this left lower back pain for months and is known to have chronic lower back pain. He denies any chest pain, sore throat, headache, recent fevers, cough, shortness of breath, palpitations, abdominal pain, dysuria, hematuria, nausea, vomiting, diarrhea or LE swelling. He has noticed over the past few months that he has been developing bilateral numbness, tingling, and discomfort of the toes of both of his feet. He was recently started on Januvia by his PCP for his diabetes. This is the second the time the patient has been admitted to the hospital for a UTI in the past 4 months. He denies any other symptoms or complaints. He was evaluated in the ER [facility] and found to have an elevated lactic acid of 4.0 and we have been asked to admit the patient to the hospital for further care. Review of Systems Review of Systems: All systems reviewed & are unremarkable except as noted in HPI and below PMFSH Past Medical History Medical History (Updated 02/20/20 @ 01:05 by Landry Goyal MD) Arthritis Chronic kidney disease, stage 3 Frequent urination Hypertension Left inguinal hernia Peripheral neuropathy Staph infection left leg Type II diabetes mellitus Surgical History Surgical History Hx of tonsillectomy Family History Family History Father Renal disease Hypertension Social History Social History Smoking status: Never smoker Alcohol intake: never Drinks per week: 0 Substance use: never Gender identity (if verbalized by the patient): Male Spiritual care concerns: No Agree to blood products: Yes Meds Home Medications and Allergies Home Medications Medication Instructions Recorded Confirmed Type glimepiride 2 mg PO BID 12/09/19 02/19/20 History metformin 1,000 mg PO BID 12/09/19 02/19/20 History omeprazole 20 mg PO DAILY 12/09/19 02/19/20 History Januvia 50 mg PO DAILY #30 tablet 12/15/19 02/19/20 Rx amlodipine 10 mg PO DAILY #30 tablet 12/15/19 02/19/20 Rx tamsulosin 0.4 mg PO BEDTIME #30 cap 12/15/19 02/20/20 Rx ascorbic acid (vitamin C) [Vitamin 1,000 mg PO DAILY 02/20/20 02/20/20 History C] cetirizine [Zyrtec] 10 mg PO DAILY 02/20/20 02/20/20 History indomethacin 500 mg PO TID 02/20/20 02/20/20 History Allergies Allergy/AdvReac Type Severity Reaction Status Date / Time amoxicillin [From Augmentin] Allergy Rash Verified 02/19/20 18:44 clavulanic acid Allergy Rash Verified 02/19/20 18:44 [From Augmentin] Vital Signs Vital Signs - 24 hr 02/19/20 18:37 02/19/20 18:48 02/19/20 18:53 Temperature 37.6 C Pulse Rate 103 H 105 H Respiratory Rate 34 H 24 H Blood Pressure 128/51 L Pulse Oximetry 99 100 02/19/20 20:50 02/19/20 21:21 02/19/20 23:30 Temperature 37.8 C H 36.8 C Pulse Rate 102 H 94 Respiratory Rate 18 18 Blood Pressure 142/73 H 127/63 Pulse Oximetry 97 97 Exam Const: General: cooperative, no acute distress, alert, awake and ill appearing chronically Nutritional Appearance: obese morbidly obese Orientation/consciousness: patient oriented x3 HENMT: Head: normal to inspection General nose exam: Normal external nose present Face and sinus: normal facial exam Mouth: Yes Normal oral and palatal mucosa present and Yes oropharynx normal Eyes: Pupils: Equal, round and reactive pupils present EOM: EOMs intact bilaterally Neck: Neck: supple and no JVD Thyroid: thyroid normal Lymphatic: lymphadenopathy not noted Resp: Effort & Inspection: normal respiratory effort
--- NOTE | 2020-02-20 03:17 | PC.NURSE ---
Pt going to bed- ok to start usual meds in AM.
[2020-02-20 05:05] VITALS: BP 114/55; PULSE 86; RESP 15; TEMP 36.3; O2SAT 97
[2020-02-20 05:08] LABS: Basophils Absolute Auto 0.1 K/mm3 (0.0-0.1); Basophils Percent Auto 0.3 % (0.2-1.2); Eosinophils Absolute Auto 0.1 K/mm3 (0-0.3); Eosinophils Percent Auto 0.3 % (0-4.4); Hematocrit 34.2 % (42.0-52.0); Hemoglobin 11.7 g/dL (14.0-18.0); Immature Granulocyte Absolute 0.17 K/mm3 (0.00-0.031); Immature Granulocyte Percent A 0.7 % (0-0.5); Lymphocytes Absolute Auto 0.89 K/mm3 (0.9-3.2); Lymphocytes Percent Auto 3.7 % (18.3-44.2); Mean Corpuscular HGB Conc 34.2 g/dl (32-36); Mean Corpuscular Hemoglobin 30.1 pg (26-34); Mean Corpuscular Volume 87.9 fl (80-100); Mean Platelet Volume 8.3 fl (7.4-10.4); Monocytes Absolute Auto 0.8 K/mm3 (0.1-0.6); Monocytes Percent Auto 3.2 % (2.6-8.5); Neutrophils Absolute Auto 21.9 K/mm3 (1.3-6.7); Neutrophils Percent Auto 91.8 % (45.5-73.1); Platelet Count Result 258 k/mm3 (150-375); Red Blood Count 3.89 M/mm3 (4.6-6.20); Red Cell Distribution Width 14.6 % (11.5-14.5); White Blood Count 23.9 K/mm3 (4.5-10.0)
[2020-02-20 05:23] LABS: Lactic Acid Reflex 1.7 mmol/L (0.7-2.1)
[2020-02-20 05:32] LABS: Blood Urea Nitrogen 27 mg/dL (9-20); Calcium 8.1 mg/dL (8.4-10.2); Carbon Dioxide 22 mmol/L (22-30); Chloride 107 mmol/L (98-107); Estimated CRCL calculation 56 ml/min; Estimated Glomerular Filt Rate 36; Glucose 166 mg/dL (75-110); Potassium 5.5 mmol/L (3.4-5.0); Sodium 135 mmol/L (137-145)
[2020-02-20 07:43] LABS: Glucose Point of Care 141 (65-105)
[2020-02-20] MEDS: SODIUM CHLORIDE 0.9% IV 1,000 ML 125 ML IV CONT ×2 (07:45→15:52)
[2020-02-20] MEDS: ASCORBIC ACID 500 MG TABLET 1000 MG PO (08:12)
[2020-02-20] MEDS: LORATADINE 10 MG TABLET PO (08:12)
[2020-02-20] MEDS: ENOXAPARIN 40 MG/0.4 ML SYRINGE SUB-Q (08:12)
[2020-02-20] MEDS: GLIMEPIRIDE 2 MG TABLET PO ×2 (08:12→16:31)
[2020-02-20 08:14] VITALS: RESP 16; O2SAT 97
[2020-02-20] MEDS: GABAPENTIN 300 MG CAPSULE PO ×3 (08:14→16:32)
[2020-02-20] MEDS: INDOMETHACIN 25 MG CAPSULE 50 MG PO ×3 (08:14→16:31)
[2020-02-20] MEDS: AMLODIPINE BESYLATE 5 MG TABLET 10 MG PO (08:14)
[2020-02-20] MEDS: PANTOPRAZOLE 40 MG TABLET PO (08:14)
[2020-02-20 11:46] LABS: Glucose Point of Care 237 (65-105)
[2020-02-20] MEDS: INSULIN ASPART (*BKC) 100 UNITS/ML SUB-Q ×3 (12:09→20:54)
[2020-02-20 14:00] VITALS: BP 154/92; PULSE 91; RESP 16; TEMP 36.8; O2SAT 98
[2020-02-20 16:28] LABS: Glucose Point of Care 228 (65-105)
--- NOTE | 2020-02-20 17:39 | PM.IMPN ---
Progress Note: A&P Assessment and Plan (1) Urinary tract infection: Qualifiers: Hematuria presence: without hematuria Urinary tract infection type: site unspecified Qualified Code(s): N39.0 - Urinary tract infection, site not specified Code(s): N39.0 - Urinary tract infection, site not specified Status: Acute Assessment and Plan: , Continue IV hydration and IV antibiotics. Urine cultures pending and blood cultures 1 of which now growing gram-negative jossue as he did on last visit. (2) Peripheral neuropathy: Qualifiers: Peripheral neuropathy type: polyneuropathy, unspecified Qualified Code(s): G62.9 - Polyneuropathy, unspecified Code(s): G62.9 - Polyneuropathy, unspecified Status: Chronic Assessment and Plan: started Gabapentin PO TID. (3) Chronic kidney disease, stage 3: Code(s): N18.3 - Chronic kidney disease, stage 3 (moderate) Status: Chronic Assessment and Plan: Cr appears to be at baseline. Avoid nephrotoxic agents so discontinue indomethacin, Creatinine had nadired at 1.6 on 12/22 after discharge from previous hospitalization. 1.9 now (4) Hypertension: Qualifiers: Hypertension type: unspecified Qualified Code(s): I10 - Essential (primary) hypertension Code(s): I10 - Essential (primary) hypertension Status: Chronic Assessment and Plan: stable.. Resumed home antihypertensives. (5) Type II diabetes mellitus: Qualifiers: Diabetes mellitus fpc insulin use: with fpc use Diabetes mellitus complication status: without complication Qualified Code(s): E11.9 - Type 2 diabetes mellitus without complications; Z79.4 - [employer]P (current) use of insulin Code(s): E11.9 - Type 2 diabetes mellitus without complications Status: Chronic Assessment and Plan: Dr. Murphy had a long discussion regarding lifestyle changes that the paitent needs to undertake to control his diabetes. Last HgbA1c was 8.2 in Dec 2019. Accuchecks, SSI Coverage, Hypoglycemic protocol. Hold oral hypoglycemics (6) Sepsis: Qualifiers: Sepsis type: sepsis due to unspecified organism Sepsis acute organ dysfunction status: with acute organ dysfunction Severe sepsis acute organ dysfunction type: acute renal failure Acute renal failure type: unspecified Severe sepsis shock status: without septic shock Qualified Code(s): A41.9 - Sepsis, unspecified organism; R65.20 - Severe sepsis without septic shock; N17.9 - Acute kidney failure, unspecified Code(s): A41.9 - Sepsis, unspecified organism Status: Acute Assessment and Plan: With tachycardia and leukocytosis met sepsis criteria today. And with elevated lactate on admission Urinary tract infection thought source. Continue hydration and antibiotics Subjective Date/time seen: 02/20/20 17:39 Interval history: Date of visit 02/19. 64-year-old hypertensive type 2 diabetic admitted with repeat urinary tract infection. Hospitalized in November of this year with sepsis urinary tract infection and acute renal failure. He states that he ran out of his Flomax some time ago and had less urgency when he took the Flomax. Renal sonogram last visit showed no obstruction. Feels better this a.m. after hydration and antibiotics Exam Narrative: Exam Narrative: Blood pressure 116/74 pulse is 91 afebrile saturating 99% on room air Pupils equal reactive to light sclera anicteric Lungs clear CV regular rate rhythm Abdomen soft nontender Extremities without edema distal pulse 2 + Neuro alert pleasant cooperative no focal deficits Objective Data Vital Signs Vital Signs: Vital Signs - 24 hr 02/19/20 18:37 02/19/20 18:48 02/19/20 18:53 Temperature 37.6 C Pulse Rate 103 H 105 H Respiratory Rate 34 H 24 H Blood Pressure 128/51 L Pulse Oximetry 99 100 02/19/20 20:50 02/19/20 21:21 02/19/20 23:30 Temperature 37.8 C H 36.8 C Pulse Rate
[2020-02-20 19:57] LABS: Glucose Point of Care 276 (65-105)
[2020-02-20 20:00] VITALS: BP 154/77; PULSE 89; RESP 16; TEMP 36.6; O2SAT 97
[2020-02-20] MEDS: TAMSULOSIN HCL 0.4 MG CAPSULE PO (20:00)
[2020-02-20 23:03] LABS: Glucose Point of Care 214 (65-105)
[2020-02-21] VITALS (8 sets, daily range): BP systolic 158–171; BP diastolic 71–87; PULSE 97–102; RESP 16–18; TEMP 36.7–38.1; O2SAT 95–99
[2020-02-21] MEDS: SODIUM CHLORIDE 0.9% IV 1,000 ML 125 ML IV CONT ×3 (00:17→16:14)
[2020-02-21 07:39] LABS: Basophils Absolute Auto 0.1 K/mm3 (0.0-0.1); Basophils Percent Auto 0.5 % (0.2-1.2); Eosinophils Absolute Auto 0.2 K/mm3 (0-0.3); Eosinophils Percent Auto 1.8 % (0-4.4); Hemoglobin 11.4 g/dL (14.0-18.0); Immature Granulocyte Absolute 0.07 K/mm3 (0.00-0.031); Immature Granulocyte Percent A 0.6 % (0-0.5); Lymphocytes Absolute Auto 1.35 K/mm3 (0.9-3.2); Lymphocytes Percent Auto 10.9 % (18.3-44.2); Mean Corpuscular HGB Conc 33.5 g/dl (32-36); Mean Corpuscular Hemoglobin 29.7 pg (26-34); Mean Corpuscular Volume 88.5 fl (80-100); Mean Platelet Volume 8.7 fl (7.4-10.4); Monocytes Absolute Auto 0.8 K/mm3 (0.1-0.6); Monocytes Percent Auto 6.5 % (2.6-8.5); Neutrophils Absolute Auto 9.9 K/mm3 (1.3-6.7); Neutrophils Percent Auto 79.7 % (45.5-73.1); Platelet Count Result 211 k/mm3 (150-375); Red Blood Count 3.84 M/mm3 (4.6-6.20); White Blood Count 12.4 K/mm3 (4.5-10.0)
[2020-02-21 07:51] LABS: Blood Urea Nitrogen 19 mg/dL (9-20); Calcium 8.6 mg/dL (8.4-10.2); Carbon Dioxide 22 mmol/L (22-30); Chloride 104 mmol/L (98-107); Estimated CRCL calculation 70 ml/min; Estimated Glomerular Filt Rate 47; Glucose 192 mg/dL (75-110); Potassium 4.8 mmol/L (3.4-5.0); Sodium 134 mmol/L (137-145)
[2020-02-21] MEDS: ENOXAPARIN 40 MG/0.4 ML SYRINGE SUB-Q (08:00)
[2020-02-21] MEDS: ASCORBIC ACID 500 MG TABLET 1000 MG PO (08:00)
[2020-02-21] MEDS: AMLODIPINE BESYLATE 5 MG TABLET 10 MG PO (08:00)
[2020-02-21] MEDS: LORATADINE 10 MG TABLET PO (08:01)
[2020-02-21] MEDS: PANTOPRAZOLE 40 MG TABLET PO (08:01)
[2020-02-21] MEDS: GABAPENTIN 300 MG CAPSULE PO ×3 (08:01→16:15)
[2020-02-21 08:24] LABS: Glucose Point of Care 175 (65-105)
[2020-02-21 11:32] LABS: Glucose Point of Care 243 (65-105)
[2020-02-21] MEDS: ACETAMINOPHEN 325 MG TABLET 650 MG PO ×2 (11:33→18:46)
[2020-02-21] MEDS: INSULIN ASPART (*BKC) 100 UNITS/ML SUB-Q ×2 (11:34→16:22)
[2020-02-21 16:22] LABS: Glucose Point of Care 221 (65-105)
--- NOTE | 2020-02-21 17:30 | PM.IMPN ---
Progress Note: A&P Assessment and Plan (1) Urinary tract infection: Qualifiers: Hematuria presence: without hematuria Urinary tract infection type: site unspecified Qualified Code(s): N39.0 - Urinary tract infection, site not specified Code(s): N39.0 - Urinary tract infection, site not specified Status: Acute Assessment and Plan: , Continue IV hydration and IV antibiotics. Urine cultures pending and blood cultures 1 of which now growing gram-negative jossue as he did on last visit. Date of visit 02/20. 64-year-old hypertensive type 2 diabetic admitted with repeat urinary tract infection. Hospitalized in November of this year with sepsis urinary tract infection and acute renal failure. He states that he ran out of his Flomax some time ago and had less urgency when he took the Flomax. Renal sonogram last visit showed no obstruction. His urine and blood cultures are positive for E coli he had a similar presentation in November 2019 and was treated with ceftriaxone will continue and follow-up on urine and blood culture sensitivity Feels better this a.m. after hydration and antibiotics (2) Peripheral neuropathy: Qualifiers: Peripheral neuropathy type: polyneuropathy, unspecified Qualified Code(s): G62.9 - Polyneuropathy, unspecified Code(s): G62.9 - Polyneuropathy, unspecified Status: Chronic Assessment and Plan: started Gabapentin PO TID. (3) Chronic kidney disease, stage 3: Code(s): N18.3 - Chronic kidney disease, stage 3 (moderate) Status: Chronic Assessment and Plan: Cr appears to be at baseline. Avoid nephrotoxic agents so discontinue indomethacin, Creatinine had nadired at 1.6 on 12/22 after discharge from previous hospitalization. 1.9 now (4) Hypertension: Qualifiers: Hypertension type: unspecified Qualified Code(s): I10 - Essential (primary) hypertension Code(s): I10 - Essential (primary) hypertension Status: Chronic Assessment and Plan: stable.. Resumed home antihypertensives. (5) Type II diabetes mellitus: Qualifiers: Diabetes mellitus superintendent terminal insulin use: with superintendent terminal use Diabetes mellitus complication status: without complication Qualified Code(s): E11.9 - Type 2 diabetes mellitus without complications; Z79.4 - petroleum terminal plant operator (current) use of insulin Code(s): E11.9 - Type 2 diabetes mellitus without complications Status: Chronic Assessment and Plan: Dr. Murphy had a long discussion regarding lifestyle changes that the laexitent needs to undertake to control his diabetes. Last HgbA1c was 8.2 in Dec 2019. Accuchecks, SSI Coverage, Hypoglycemic protocol. Hold oral hypoglycemics (6) Sepsis: Qualifiers: Sepsis type: sepsis due to unspecified organism Sepsis acute organ dysfunction status: with acute organ dysfunction Severe sepsis acute organ dysfunction type: acute renal failure Acute renal failure type: unspecified Severe sepsis shock status: without septic shock Qualified Code(s): A41.9 - Sepsis, unspecified organism; R65.20 - Severe sepsis without septic shock; N17.9 - Acute kidney failure, unspecified Code(s): A41.9 - Sepsis, unspecified organism Status: Acute Assessment and Plan: With tachycardia and leukocytosis met sepsis criteria upon arrival most likely secondary to UTI. And with elevated lactate on admission Urinary tract infection thought source. Continue hydration and antibiotics Subjective Date/time seen: 02/21/20 17:30 Interval history: Date of visit 02/20. 64-year-old hypertensive type 2 diabetic admitted with repeat urinary tract infection. Hospitalized in November of this year with sepsis urinary tract infection and acute renal failure. He states that he ran out of his Flomax some time ago and had less urgency when he took the Flomax. Renal sonogram last visit showed no obstruction. His urine and blood cultures are positive for E coli
[2020-02-21] MEDS: TAMSULOSIN HCL 0.4 MG CAPSULE PO (21:45)
[2020-02-21 21:52] LABS: Glucose Point of Care 235 (65-105)
[2020-02-21] MEDS: hydrALAZINE HCL 20 MG/ML VIAL 25 MG IV PUSH (22:10)
[2020-02-22] MEDS: SODIUM CHLORIDE 0.9% IV 1,000 ML 125 ML IV CONT ×3 (00:47→16:07)
[2020-02-22 04:00] VITALS: BP 149/75; PULSE 99; RESP 20; TEMP 37.3; O2SAT 96
[2020-02-22 06:01] LABS: Hematocrit 32.5 % (42.0-52.0); Hemoglobin 11.1 g/dL (14.0-18.0); Mean Corpuscular HGB Conc 34.2 g/dl (32-36); Mean Corpuscular Hemoglobin 29.8 pg (26-34); Mean Corpuscular Volume 87.4 fl (80-100); Mean Platelet Volume 8.8 fl (7.4-10.4); Platelet Count Result 202 k/mm3 (150-375); Red Blood Count 3.72 M/mm3 (4.6-6.20); Red Cell Distribution Width 15.1 % (11.5-14.5); White Blood Count 12.4 K/mm3 (4.5-10.0)
[2020-02-22 06:04] LABS: Albumin Level 3.6 g/dL (3.5-5.1); Blood Urea Nitrogen 18 mg/dL (9-20); Calcium 8.9 mg/dL (8.4-10.2); Carbon Dioxide 21 mmol/L (22-30); Chloride 106 mmol/L (98-107); Estimated CRCL calculation 70 ml/min; Estimated Glomerular Filt Rate 47; Glucose 206 mg/dL (75-110); Potassium 4.2 mmol/L (3.4-5.0); Sodium 136 mmol/L (137-145)
[2020-02-22 07:54] LABS: Glucose Point of Care 189 (65-105)
[2020-02-22] MEDS: GABAPENTIN 300 MG CAPSULE PO ×3 (08:46→16:45)
[2020-02-22] MEDS: ASCORBIC ACID 500 MG TABLET 1000 MG PO (08:47)
[2020-02-22] MEDS: ENOXAPARIN 40 MG/0.4 ML SYRINGE SUB-Q (08:47)
[2020-02-22] MEDS: AMLODIPINE BESYLATE 5 MG TABLET 10 MG PO (08:47)
[2020-02-22 08:48] VITALS: PULSE 96; RESP 20; O2SAT 95
[2020-02-22] MEDS: LORATADINE 10 MG TABLET PO (08:48)
[2020-02-22] MEDS: PANTOPRAZOLE 40 MG TABLET PO (08:48)
[2020-02-22 11:40] LABS: Glucose Point of Care 277 (65-105)
[2020-02-22] MEDS: INSULIN ASPART (*BKC) 100 UNITS/ML SUB-Q ×2 (11:42→16:45)
--- NOTE | 2020-02-22 15:42 | PM.IMPN ---
Progress Note: A&P Assessment and Plan (1) Urinary tract infection: Qualifiers: Hematuria presence: without hematuria Urinary tract infection type: site unspecified Qualified Code(s): N39.0 - Urinary tract infection, site not specified Code(s): N39.0 - Urinary tract infection, site not specified Status: Acute Assessment and Plan: , Continue IV hydration and IV antibiotics. Urine cultures pending and blood cultures 1 of which now growing gram-negative jossue as he did on last visit. Date of visit 02/21 64-year-old hypertensive type 2 diabetic admitted with repeat urinary tract infection. Hospitalized in November of this year with sepsis urinary tract infection and acute renal failure. He states that he ran out of his Flomax some time ago and had less urgency when he took the Flomax. Renal sonogram last visit showed no obstruction. His urine and blood cultures are positive for E coli sensitive to ceftriaxone, he had a similar presentation in November 2019 and was treated with ceftriaxone, will continue IV antibiotics total of 7 days and then discharge the patient on cefdinir for 7 days, patient is clinically stable denies any complaints fever or chill will have a PT OT evaluate the patient (2) Peripheral neuropathy: Qualifiers: Peripheral neuropathy type: polyneuropathy, unspecified Qualified Code(s): G62.9 - Polyneuropathy, unspecified Code(s): G62.9 - Polyneuropathy, unspecified Status: Chronic Assessment and Plan: started Gabapentin PO TID. (3) Chronic kidney disease, stage 3: Code(s): N18.3 - Chronic kidney disease, stage 3 (moderate) Status: Chronic Assessment and Plan: Cr appears to be at baseline. Avoid nephrotoxic agents so discontinue indomethacin, Creatinine had nadired at 1.6 on 12/22 after discharge from previous hospitalization. 1.9 now (4) Hypertension: Qualifiers: Hypertension type: unspecified Qualified Code(s): I10 - Essential (primary) hypertension Code(s): I10 - Essential (primary) hypertension Status: Chronic Assessment and Plan: stable.. Resumed home antihypertensives. (5) Type II diabetes mellitus: Qualifiers: Diabetes mellitus terminal operations supervisor insulin use: with terminal operations supervisor use Diabetes mellitus complication status: without complication Qualified Code(s): E11.9 - Type 2 diabetes mellitus without complications; Z79.4 - local company intermodal truck driver (current) use of insulin Code(s): E11.9 - Type 2 diabetes mellitus without complications Status: Chronic Assessment and Plan: Dr. Murphy had a long discussion regarding lifestyle changes that the paitent needs to undertake to control his diabetes. Last HgbA1c was 8.2 in Dec 2019. Accuchecks, SSI Coverage, Hypoglycemic protocol. Hold oral hypoglycemics (6) Sepsis: Qualifiers: Sepsis type: sepsis due to unspecified organism Sepsis acute organ dysfunction status: with acute organ dysfunction Severe sepsis acute organ dysfunction type: acute renal failure Acute renal failure type: unspecified Severe sepsis shock status: without septic shock Qualified Code(s): A41.9 - Sepsis, unspecified organism; R65.20 - Severe sepsis without septic shock; N17.9 - Acute kidney failure, unspecified Code(s): A41.9 - Sepsis, unspecified organism Status: Acute Assessment and Plan: With tachycardia and leukocytosis met sepsis criteria upon arrival most likely secondary to UTI. And with elevated lactate on admission Urinary tract infection thought source. Continue hydration and antibiotics Subjective Date/time seen: 02/22/20 15:42 Interval history: Date of visit 02/21 64-year-old hypertensive type 2 diabetic admitted with repeat urinary tract infection. Hospitalized in November of this year with sepsis urinary tract infection and acute renal failure. He states that he ran out of his Flomax some time ago and had less urgency when he took the Balbir
[2020-02-22 16:00] VITALS: BP 149/72; PULSE 68; RESP 16; TEMP 36.8; O2SAT 98
[2020-02-22 16:20] LABS: Glucose Point of Care 210 (65-105)
[2020-02-22] MEDS: TAMSULOSIN HCL 0.4 MG CAPSULE PO (21:07)
[2020-02-22 21:28] LABS: Glucose Point of Care 255 (65-105)
[2020-02-22 22:00] VITALS: BP 146/74; PULSE 95; RESP 22; TEMP 37.1; O2SAT 97
[2020-02-23] MEDS: SODIUM CHLORIDE 0.9% IV 1,000 ML 125 ML IV CONT (00:41)
[2020-02-23 05:50] LABS: Hematocrit 32.1 % (42.0-52.0); Hemoglobin 10.6 g/dL (14.0-18.0); Mean Corpuscular Hemoglobin 29.7 pg (26-34); Mean Corpuscular Volume 89.9 fl (80-100); Platelet Count Result 213 k/mm3 (150-375); Red Blood Count 3.57 M/mm3 (4.6-6.20); Red Cell Distribution Width 15.3 % (11.5-14.5); White Blood Count 9.1 K/mm3 (4.5-10.0)
[2020-02-23 06:19] LABS: Albumin Level 3.5 g/dL (3.5-5.1); Blood Urea Nitrogen 17 mg/dL (9-20); Calcium 8.7 mg/dL (8.4-10.2); Carbon Dioxide 23 mmol/L (22-30); Chloride 104 mmol/L (98-107); Estimated CRCL calculation 75 ml/min; Estimated Glomerular Filt Rate 51; Glucose 199 mg/dL (75-110); Phosphorus 3.7 mg/dL (2.5-4.5); Potassium 4.5 mmol/L (3.4-5.0); Sodium 135 mmol/L (137-145)
[2020-02-23 07:06] VITALS: BP 164/89; PULSE 83; RESP 20; TEMP 36.7; O2SAT 96
[2020-02-23 07:48] LABS: Glucose Point of Care 207 (65-105)
[2020-02-23] MEDS: ACETAMINOPHEN 325 MG TABLET 650 MG PO (07:50)
[2020-02-23] MEDS: INSULIN ASPART (*BKC) 100 UNITS/ML SUB-Q ×3 (07:51→16:30)
[2020-02-23] MEDS: AMLODIPINE BESYLATE 5 MG TABLET 10 MG PO (08:27)
[2020-02-23] MEDS: LORATADINE 10 MG TABLET PO (08:27)
[2020-02-23] MEDS: ENOXAPARIN 40 MG/0.4 ML SYRINGE SUB-Q (08:27)
[2020-02-23] MEDS: GABAPENTIN 300 MG CAPSULE PO ×3 (08:27→16:29)
[2020-02-23] MEDS: PANTOPRAZOLE 40 MG TABLET PO (08:27)
[2020-02-23] MEDS: ASCORBIC ACID 500 MG TABLET 1000 MG PO (08:27)
[2020-02-23 11:39] LABS: Glucose Point of Care 264 (65-105)
[2020-02-23 14:00] VITALS: BP 154/71; PULSE 85; RESP 20; TEMP 36.6; O2SAT 97
--- NOTE | 2020-02-23 15:49 | PM.IMPN ---
Progress Note: A&P Assessment and Plan (1) Urinary tract infection: Qualifiers: Hematuria presence: without hematuria Urinary tract infection type: site unspecified Qualified Code(s): N39.0 - Urinary tract infection, site not specified Code(s): N39.0 - Urinary tract infection, site not specified Status: Acute Assessment and Plan: , Continue IV hydration and IV antibiotics. Urine cultures pending and blood cultures 1 of which now growing gram-negative jossue as he did on last visit. Date of visit 02/22 64-year-old hypertensive type 2 diabetic admitted with repeat urinary tract infection. Hospitalized in November of this year with sepsis urinary tract infection and acute renal failure. He states that he ran out of his Flomax some time ago and had less urgency when he took the Flomax. Renal sonogram last visit showed no obstruction. His urine and blood cultures are positive for E coli sensitive to ceftriaxone, he had a similar presentation in November 2019 and was treated with ceftriaxone, will continue IV antibiotics total of 7 days and then discharge the patient on cefdinir for 7 days, he will complete his IV abx tomorrow and will discharge hime patient is clinically stable denies any complaints fever or chill will have a PT OT evaluate the patient (2) Peripheral neuropathy: Qualifiers: Peripheral neuropathy type: polyneuropathy, unspecified Qualified Code(s): G62.9 - Polyneuropathy, unspecified Code(s): G62.9 - Polyneuropathy, unspecified Status: Chronic Assessment and Plan: started Gabapentin PO TID. (3) Chronic kidney disease, stage 3: Code(s): N18.3 - Chronic kidney disease, stage 3 (moderate) Status: Chronic Assessment and Plan: Cr appears to be at baseline. Avoid nephrotoxic agents so discontinue indomethacin, Creatinine had nadired at 1.6 on 12/22 after discharge from previous hospitalization. 1.4 now (4) Hypertension: Qualifiers: Hypertension type: unspecified Qualified Code(s): I10 - Essential (primary) hypertension Code(s): I10 - Essential (primary) hypertension Status: Chronic Assessment and Plan: stable.. Resumed home antihypertensives. (5) Type II diabetes mellitus: Qualifiers: Diabetes mellitus adjunct faculty for medical terminology insulin use: with fci use Diabetes mellitus complication status: without complication Qualified Code(s): E11.9 - Type 2 diabetes mellitus without complications; Z79.4 - jail (current) use of insulin Code(s): E11.9 - Type 2 diabetes mellitus without complications Status: Chronic Assessment and Plan: Dr. Murphy had a long discussion regarding lifestyle changes that the alexitent needs to undertake to control his diabetes. Last HgbA1c was 8.2 in Dec 2019. Accuchecks, SSI Coverage, Hypoglycemic protocol. Hold oral hypoglycemics (6) Sepsis: Qualifiers: Sepsis type: sepsis due to unspecified organism Sepsis acute organ dysfunction status: with acute organ dysfunction Severe sepsis acute organ dysfunction type: acute renal failure Acute renal failure type: unspecified Severe sepsis shock status: without septic shock Qualified Code(s): A41.9 - Sepsis, unspecified organism; R65.20 - Severe sepsis without septic shock; N17.9 - Acute kidney failure, unspecified Code(s): A41.9 - Sepsis, unspecified organism Status: Acute Assessment and Plan: With tachycardia and leukocytosis met sepsis criteria upon arrival most likely secondary to UTI. And with elevated lactate on admission Urinary tract infection thought source. Continue hydration and antibiotics Subjective Date/time seen: 02/23/20 15:49 Interval history: Date of visit 02/22 64-year-old hypertensive type 2 diabetic admitted with repeat urinary tract infection. Hospitalized in November of this year with sepsis urinary tract infection and acute renal failure. He states that he ran out of hi
[2020-02-23 16:45] LABS: Glucose Point of Care 282 (65-105)
[2020-02-23] MEDS: TAMSULOSIN HCL 0.4 MG CAPSULE PO (21:21)
[2020-02-23 21:53] VITALS: BP 154/74; PULSE 84; RESP 16; TEMP 36.8; O2SAT 97
[2020-02-23 23:04] LABS: Glucose Point of Care 284 (65-105)
[2020-02-24 05:30] LABS: Hematocrit 32.6 % (42.0-52.0); Hemoglobin 11.1 g/dL (14.0-18.0); Mean Corpuscular Hemoglobin 29.9 pg (26-34); Mean Corpuscular Volume 87.9 fl (80-100); Mean Platelet Volume 8.6 fl (7.4-10.4); Platelet Count Result 241 k/mm3 (150-375); Red Blood Count 3.71 M/mm3 (4.6-6.20); Red Cell Distribution Width 14.9 % (11.5-14.5); White Blood Count 6.9 K/mm3 (4.5-10.0)
[2020-02-24 05:51] VITALS: BP 134/79; PULSE 96; RESP 18; TEMP 36.6; O2SAT 96
[2020-02-24 05:59] LABS: Albumin Level 3.8 g/dL (3.5-5.1); Blood Urea Nitrogen 19 mg/dL (9-20); Calcium 9.2 mg/dL (8.4-10.2); Carbon Dioxide 25 mmol/L (22-30); Chloride 102 mmol/L (98-107); Estimated CRCL calculation 80 ml/min; Estimated Glomerular Filt Rate 56; Glucose 232 mg/dL (75-110); Phosphorus 4.5 mg/dL (2.5-4.5); Potassium 4.2 mmol/L (3.4-5.0); Sodium 134 mmol/L (137-145)
[2020-02-24 07:44] LABS: Glucose Point of Care 228 (65-105)
[2020-02-24] MEDS: INSULIN ASPART (*BKC) 100 UNITS/ML SUB-Q ×2 (07:46→11:39)
[2020-02-24] MEDS: LORATADINE 10 MG TABLET PO (08:32)
[2020-02-24] MEDS: ASCORBIC ACID 500 MG TABLET 1000 MG PO (08:32)
[2020-02-24] MEDS: ENOXAPARIN 40 MG/0.4 ML SYRINGE SUB-Q (08:32)
[2020-02-24] MEDS: AMLODIPINE BESYLATE 5 MG TABLET 10 MG PO (08:32)
[2020-02-24 08:33] VITALS: PULSE 98; RESP 18; O2SAT 96
[2020-02-24] MEDS: GABAPENTIN 300 MG CAPSULE PO ×2 (08:33→13:15)
[2020-02-24] MEDS: PANTOPRAZOLE 40 MG TABLET PO (08:33)
[2020-02-24] MEDS: PHARMACIST COMMUNICATION ORDER 1 EACH XX (09:36)
--- NOTE | 2020-02-24 09:57 | PM.DS ---
DS: Diagnosis Admitting Diagnosis Admitting Diagnosis: Urinary tract infection, site not specified Discharge Diagnosis (1) Urinary tract infection: Qualifiers: Hematuria presence: without hematuria Urinary tract infection type: site unspecified Qualified Code(s): N39.0 - Urinary tract infection, site not specified Code(s): N39.0 - Urinary tract infection, site not specified Status: Acute Assessment and Plan: Continue IV hydration and IV antibiotics. Urine cultures pending and blood cultures 1 of which now growing gram-negative jossue as he did on last visit. Date of visit 02/22 64-year-old hypertensive type 2 diabetic admitted with repeat urinary tract infection. Hospitalized in November of this year with sepsis urinary tract infection and acute renal failure. He states that he ran out of his Flomax some time ago and had less urgency when he took the Flomax. Renal sonogram last visit showed no obstruction. His urine and blood cultures are positive for E coli sensitive to ceftriaxone, he had a similar presentation in November 2019 and was treated with ceftriaxone, will continue IV antibiotics total of 7 days and then discharge the patient on cefdinir for 7 days, he will complete his IV abx tomorrow and will discharge hime patient is clinically stable denies any complaints fever or chill will have a PT OT evaluate the patient (2) Peripheral neuropathy: Qualifiers: Peripheral neuropathy type: polyneuropathy, unspecified Qualified Code(s): G62.9 - Polyneuropathy, unspecified Code(s): G62.9 - Polyneuropathy, unspecified Status: Chronic Assessment and Plan: started Gabapentin PO TID. (3) Chronic kidney disease, stage 3: Code(s): N18.3 - Chronic kidney disease, stage 3 (moderate) Status: Chronic Assessment and Plan: Cr appears to be at baseline. Avoid nephrotoxic agents so discontinue indomethacin, Creatinine had nadired at 1.6 on 12/22 after discharge from previous hospitalization. 1.4 now (4) Hypertension: Qualifiers: Hypertension type: unspecified Qualified Code(s): I10 - Essential (primary) hypertension Code(s): I10 - Essential (primary) hypertension Status: Chronic Assessment and Plan: stable.. Resumed home antihypertensives. (5) Type II diabetes mellitus: Qualifiers: Diabetes mellitus shelter insulin use: with intermodal truck driver use Diabetes mellitus complication status: without complication Qualified Code(s): E11.9 - Type 2 diabetes mellitus without complications; Z79.4 - extermination supervisor (current) use of insulin Code(s): E11.9 - Type 2 diabetes mellitus without complications Status: Chronic Assessment and Plan: Dr. Murphy had a long discussion regarding lifestyle changes that the paitent needs to undertake to control his diabetes. Last HgbA1c was 8.2 in Dec 2019. Accuchecks, SSI Coverage, Hypoglycemic protocol. Hold oral hypoglycemics (6) Sepsis: Qualifiers: Sepsis type: sepsis due to unspecified organism Sepsis acute organ dysfunction status: with acute organ dysfunction Severe sepsis acute organ dysfunction type: acute renal failure Acute renal failure type: unspecified Severe sepsis shock status: without septic shock Qualified Code(s): A41.9 - Sepsis, unspecified organism; R65.20 - Severe sepsis without septic shock; N17.9 - Acute kidney failure, unspecified Code(s): A41.9 - Sepsis, unspecified organism Status: Acute Assessment and Plan: With tachycardia and leukocytosis met sepsis criteria upon arrival most likely secondary to UTI. And with elevated lactate on admission Urinary tract infection thought source. Continue hydration and antibiotics DS: Summary Hospital Course Reason for hospitalization: This is a 64 year old Diabetic male well known to our Hospitalist service from a previous admission with CKD stage III, who returned to the hospital tonight with a
[2020-02-24 11:19] LABS: Glucose Point of Care 254 (65-105)
== END 2020-02-24 14:00 | disposition home or self-care (01) | DRG 872 ==
LOC: ANHED 22:05 → ANH3MED 22:54
PROVIDERS: Internal Medicine; Admitting Provider Family Medicine; Emergency Provider Emergency Medicine; PCP Family Medicine Adolescent Medicine; Visit Provider Family Medicine
DX: A41.51 Sepsis due to Escherichia coli [E. coli] (principal); N39.0 Urinary tract infection, site not specified; N17.9 Acute kidney failure, unspecified; Z68.42 Body mass index [BMI] 45.0-49.9, adult; R65.20 Severe sepsis without septic shock; I12.9 Hypertensive chronic kidney disease with stage 1 through stage 4 chronic kidney disease, or unspecified chronic kidney disease; E11.22 Type 2 diabetes mellitus with diabetic chronic kidney disease; N18.3 Chronic kidney disease, stage 3 (moderate); E66.01 Morbid (severe) obesity due to excess calories; M19.90 Unspecified osteoarthritis, unspecified site
CPT/HCPCS: 36415; 71045; 80048; 80053; 80069; 81001; 83605; 83735; 83880; 84484; 85025; 85027; 85380; 87040; 87077; 87086; 87088; 87186; 93005; 96361; 96365; 96372; 96375; 99285; A9270; G0378; J0360; J0696; J1650; J1815; J2270; J2405; J7030

== ENCOUNTER 2020-04-16 16:14 | Outpatient (CLI) | payer OTHER, SELFPAY ==
[2020-04-16 16:45] LABS: Add Urine Microscopic? YES; Appearance Urine Clear (Clear); Bilirubin Urine Negative (Negative); Blood Urine Negative (Negative); Color Urine Yellow (Yellow); Glucose Urine UA 3+ mg/dL (Negative); Ketones Urine Negative (Negative); Leukocyte Esterase Ur 2+ LEU/UL (NEGATIVE); Nitrate Urine Negative (Negative); Protein Urine Negative (Negative); Specific Grav Ur 1.013 (1.001-1.035); Squamous Epithelial Cell Urine Occasional /hpf (Few); Urobilinogen Urine Negative mg/dL (<2.0); WBC Urine 31-50 /hpf (0-3)
== END 2020-04-16 16:15 | disposition home or self-care (01) ==
PROVIDERS: PCP Family Medicine Adolescent Medicine; Visit Provider Family Medicine Adolescent Medicine
DX: N30.00 Acute cystitis without hematuria (principal)
CPT/HCPCS: 81001; 87077; 87086; 87088; 87186

== ENCOUNTER 2021-03-01 13:43 | Outpatient (CLI) | payer OTHER, SELFPAY ==
[2021-03-01 15:10] LABS: Alanine Aminotransferase 29 U/L (4-50); Albumin Level 4.5 g/dL (3.5-5.1); Alkaline Phosphatase 109 U/L (38-126); Anion Gap 8 mmol/L (8-16); Aspartate Amino Transferase 33 U/L (17-59); Bilirubin,Total 0.4 mg/dL (0.2-1.3); Blood Urea Nitrogen 21 mg/dL (9-20); Calcium 9.3 mg/dL (8.4-10.2); Carbon Dioxide 27 mmol/L (22-30); Chloride 102 mmol/L (98-107); Estimated Glomerular Filt Rate 51; Glucose 209 mg/dL (75-110); Potassium 5.1 mmol/L (3.4-5.0); Sodium 137 mmol/L (137-145)
[2021-03-01 15:39] LABS: Prostate Specific Antigen 0.9 ng/mL (< OR = 4.0)
[2021-03-01 15:44] LABS: Erythrocyte Sedimentation Rate 12 mm/hr (0-20)
[2021-03-01 15:46] LABS: Hemoglobin A1C 8.7 % (<5.7)
== END 2021-03-01 13:44 | disposition home or self-care (01) ==
LOC: ANHLAB 13:45
PROVIDERS: PCP Family Medicine Adolescent Medicine; Visit Provider Family Medicine Adolescent Medicine
DX: E11.65 Type 2 diabetes mellitus with hyperglycemia (principal); I10 Essential (primary) hypertension; Z12.5 Encounter for screening for malignant neoplasm of prostate; M25.50 Pain in unspecified joint
CPT/HCPCS: 36415; 80053; 83036; 84153; 85652; 86038; 86140; G0103

== ENCOUNTER 2021-05-24 15:02 | Outpatient (CLI) | payer OTHER, SELFPAY ==
--- NOTE | ~2021-05-24 | XR_ITS ---
XR lumbar spine 2-3V DATE: 05/24/2021 15:20 INDICATION: Bilateral low back pain. No known injury. TECHNIQUE: AP, lateral, coned lateral lumbosacral views COMPARISON: 12/09/2019 CT abdomen pelvis FINDINGS: There is mild levoscoliosis of the lumbar spine. There is prominent degenerative spurring of the lower thoracic spine. There is severe degenerative disc disease and mild retrolisthesis at L1-2 and L5-S1. There is moderately severe degenerative disc disease at L2-3 and L3-4. Bilateral L5 pars interarticularis defects are noted with borderline grade 1/grade 2 anterolisthesis at L5-S1. No fracture or bone destruction of the lumbar spine. The included lower thoracic and lumbar pedicles are intact. The sacroiliac joints appear normal. IMPRESSION: Bilateral L5 pars intra-articular is defects with borderline grade 1/grade 2 anterolisthe sis at L5-S1 Severe degenerative disease at L1-2 with mild associated mild retrolisthesis Moderately severe degenerative disc disease at L2-3, L3-4 Severe degenerative disc disease at L5-S1 Reviewed, dictated and finalized at location B. IMPRESSION: Bilateral L5 pars intra-articular is defects with borderline grade 1/grade 2 anterolisthesis at L5-S1 Severe degenerative disease at L1-2 with mild associated mild retrolisthesis Moderately severe degenerative disc disease at L2-3, L3-4 Severe degenerative disc disease at L5-S1
== END 2021-05-24 15:03 | disposition home or self-care (01) ==
LOC: ANHIMG 15:06
PROVIDERS: PCP Family Medicine Adolescent Medicine; Visit Provider Family Medicine Adolescent Medicine
DX: M54.5 Low back pain (principal); M43.17 Spondylolisthesis, lumbosacral region; M51.36 Other intervertebral disc degeneration, lumbar region; M43.16 Spondylolisthesis, lumbar region
CPT/HCPCS: 72100

== ENCOUNTER 2021-07-09 13:30 | Outpatient (RCR) | payer OTHER, SELFPAY ==
--- NOTE | 2021-06-19 16:13 | PTOPEVAL ---
Thank you for referring Nik Chan to [facility].? The patient is scheduled to be seen for therapy? 1 x/week for 4 weeks. Please review, sign, date and return this plan of care KUSHAL. I agree with and certify that the following plan of care is medically necessary. Referring Physician Date Attending Provider: Ezekiel Andersen MD Problem Diagnosis low back pain Onset chronic Additional Evaluation Detail x-ray: Bilateral L5 pars intra -articular is defects with borderline grade 1/grade 2 anterolisthesis at L5-S1 Severe degenerative disease at L1-2 with mild associated mild retrolisthesis Moderately severe degenerative disc disease at L2-3, L3-4 Severe degenerative disc disease at L5-S1 Subjective Information Reports his back pain has been Query Text:As Reported By Patient/ an issue since high school. Family Reports an increase in his pain over the past few years. He is unable to walk the store without increased pain and required seated rest. He can stand for 10-15 min intervals. He has difficulty carrying his grandkids. He is unable to tolerate resistance training due to pain. Only relief of symptoms is sitting position. He wore cowboy boots for 25 years. He is flatfooted. Pain Assessment Lower Back Reported Pain Level 8 Pain Score Pain Score 8: Self Report Interventions Used Interventions Used By Clinicians Education,Exercise Cervical and Lumbar ROM Lumbar ROM Lumbar Flexion Active Mid [place]:Hands to: Lateral Flexion distal thigh:Active Hands to: Lumbar Comments 20% trunk ext, trunk flex limited by abdominal mass, no pain with trunk motion Cervical and Lumbar Muscle Testing Lumbar Strength Upper Abdominal Strength 2 Poor Lower Abdominal Strength 2 Poor Upper Back Extension 3 Fair Lower Back Extension 3 Fair Lower Extremity Muscle Strength Testing General Lower Extremity Strength Gross Lower Extremity Strength grossly 5/5 except hip abduction 3+/5 Muscle Length Testing Muscle Length Te
--- NOTE | 2021-06-26 16:10 | PCPTNOTE ---
Patient no showed to appointment this date. Patient was called but no answer. Left voicemail to call clinic back to reschedule missed visit.
--- NOTE | 2021-07-09 14:23 | PCPTNOTE ---
Admitting Provider: Attending Provider: Ezekiel Andersen MD Patient:Nik Chan Date of :1955 Discharge Note Summary Patient has attended 3 therapy visits with 1 no show visits. He is non-compliant with HEP or implementing recommendations to change activities at home. He verbalized no desire to change his behavior at home. He has not achieved his therapy goals at this time due to poor compliance. Thank you for referring this patient to [facility]. Please review, sign, date and return this discharge summary KUSHAL. I have been updated about the patient's current status and I agree with discharge from the above service at this time. Referring Physician Date
== END 2021-07-09 15:54 | disposition home or self-care (01) ==
LOC: ANHPT 13:30
PROVIDERS: PCP Family Medicine Adolescent Medicine; Visit Provider Family Medicine Adolescent Medicine
DX: M54.5 Low back pain (principal)
CPT/HCPCS: 97110; 97162

== ENCOUNTER 2021-10-28 15:46 | Outpatient (CLI) | payer OTHER, SELFPAY ==
[2021-10-28 16:23] LABS: Alanine Aminotransferase 25 U/L (4-50); Aspartate Amino Transferase 32 U/L (17-59)
== END 2021-10-28 15:47 | disposition home or self-care (01) ==
LOC: ANHLAB 15:50
PROVIDERS: PCP Family Medicine Adolescent Medicine; Visit Provider Podiatrist Foot & Ankle Surgery
DX: B35.1 Tinea unguium (principal)
CPT/HCPCS: 36415; 84450; 84460

== ENCOUNTER 2022-01-28 14:11 | Outpatient (CLI) | payer OTHER, SELFPAY ==
[2022-01-28 14:48] LABS: Hemoglobin A1C 7.1 % (<5.7)
[2022-01-28 14:51] LABS: Alanine Aminotransferase 27 U/L (4-50); Aspartate Amino Transferase 37 U/L (17-59)
[2022-01-28 14:51] LABS: Alanine Aminotransferase 28 U/L (4-50); Albumin Level 4.8 g/dL (3.5-5.1); Alkaline Phosphatase 93 U/L (38-126); Anion Gap 9 mmol/L (8-16); Aspartate Amino Transferase 37 U/L (17-59); Bilirubin,Total 0.6 mg/dL (0.2-1.3); Blood Urea Nitrogen 26 mg/dL (9-20); Calcium 9.8 mg/dL (8.4-10.2); Carbon Dioxide 25 mmol/L (22-30); Chloride 100 mmol/L (98-107); Cholesterol 175 mg/dL (0-200); Estimated Glomerular Filt Rate 44; Glucose 140 mg/dL (65-110); HDL Direct 33 mg/dL; Potassium 4.6 mmol/L (3.4-5.0); Sodium 134 mmol/L (137-145); Triglycerides 178 mg/dL (<150)
[2022-01-28 15:02] LABS: LDL Cholesterol Direct 112 mg/dL
[2022-01-28 15:20] LABS: Prostate Specific Antigen 0.8 ng/mL (< OR = 4.0)
== END 2022-01-28 14:12 | disposition home or self-care (01) ==
PROVIDERS: PCP Family Medicine Adolescent Medicine; Referring Provider Podiatrist Foot & Ankle Surgery; Visit Provider Family Medicine Adolescent Medicine
DX: E11.42 Type 2 diabetes mellitus with diabetic polyneuropathy (principal); B35.1 Tinea unguium; G62.9 Polyneuropathy, unspecified; N18.30 Chronic kidney disease, stage 3 unspecified; I10 Essential (primary) hypertension; Z12.5 Encounter for screening for malignant neoplasm of prostate
CPT/HCPCS: 36415; 80053; 80061; 83036; 84153; 84450; 84460; G0103

== ENCOUNTER 2022-04-28 15:28 | Outpatient (CLI) | payer OTHER, SELFPAY ==
[2022-04-28 16:04] LABS: Alanine Aminotransferase 28 U/L (6-50); Aspartate Amino Transferase 28 U/L (17-59)
== END 2022-04-28 15:29 | disposition home or self-care (01) ==
LOC: ANHLAB 15:30
PROVIDERS: PCP Family Medicine Adolescent Medicine; Visit Provider Podiatrist Foot & Ankle Surgery
DX: B35.1 Tinea unguium (principal)
CPT/HCPCS: 36415; 84450; 84460

== ENCOUNTER 2023-01-12 20:57 | Emergency (ER) | payer OTHER, SELFPAY ==
--- NOTE | ~2023-01-12 | CT_ITS ---
EXAMINATION: CTA brain carotid DATE: 01/13/2023 02:48 INDICATION: Dizziness. TECHNIQUE: Computed tomographic angiography (CTA) of the head was performed without and with 100 mL O mnipaque-350 intravenous contrast. CTA of the neck was performed with intravenous contrast. Automated exposure control and iterative reconstruction technique were employed. The dose-length product was 1 939.29 mGy-cm. Maximum intensity projection and volume rendered 3D-reconstructions were created by elliot cobb technologist on a separate workstation. COMPARISON: None. FINDINGS: HEAD CTA: There is no intracranial hemorrhage, acute infarction, or abnormal intracranial mass lesion . The ventricles are normal in size. The orbits are normal. There is mucosal thickening in the parana marylou sinuses. The mastoid air cells are normal. The vertebral arteries are codominant. There is no sig nificant stenosis of basilar artery or the posterior cerebral arteries. The posterior communicating a rteries are normal. There is no significant stenosis of the intracranial internal carotid arteries or anterior or middle cerebral arteries. Anterior communicating artery is normal. There is no aneurysm. NECK CTA: There are no pathologically enlarged lymph nodes. There is no significant stenosis of the v ertebral arteries. There is plaque in the proximal internal carotid arteries. There is 0% stenosis of the proximal right internal carotid artery relative to normal distal artery lumen diameter (NASCET c riteria). There is 0% stenosis of the proximal left internal carotid artery relative to normal distal artery lumen diameter. There is severe cervical spondylosis. IMPRESSION: 1. Normal brain. 2. No aneurysm or significant intracranial arterial stenosis. 3. 0% stenosis of the proximal internal carotid arteries relative to normal distal artery lumen diame ters (NASCET criteria). Reviewed, dictated and finalized at location A. OR REGULAT[employer] AFFAIRS SPECIALIST IMPRESSION: 1. Normal brain. 2. No aneurysm or significant intracranial arterial stenosis. 3. 0% stenosis of the proximal internal carotid arteries relative to normal dis rony artery lumen diameters (NASCET criteria).
[2023-01-12 20:59] VITALS: BP 160/119; PULSE 91; RESP 20; TEMP 36.2; O2SAT 97
[2023-01-12 21:20] LABS: Basophils Absolute Auto 0.1 K/mm3 (0.0-0.1); Basophils Percent Auto 0.9 % (0.2-1.2); Eosinophils Absolute Auto 0.3 K/mm3 (0-0.3); Eosinophils Percent Auto 3.2 % (0-4.4); Hematocrit 46.5 % (42.0-52.0); Hemoglobin 15.7 g/dL (14.0-18.0); Immature Granulocyte Absolute 0.05 K/mm3 (0.00-0.031); Immature Granulocyte Percent A 0.5 % (0-0.5); Lymphocytes Absolute Auto 2.45 K/mm3 (0.9-3.2); Lymphocytes Percent Auto 25.7 % (18.3-44.2); Mean Corpuscular HGB Conc 33.8 g/dl (32-36); Mean Corpuscular Hemoglobin 29.7 pg (26-34); Mean Corpuscular Volume 88.1 fl (80-100); Mean Platelet Volume 8.3 fl (7.4-10.4); Monocytes Absolute Auto 0.9 K/mm3 (0.1-0.6); Monocytes Percent Auto 9.1 % (2.6-8.5); Neutrophils Absolute Auto 5.8 K/mm3 (1.3-6.7); Neutrophils Percent Auto 60.6 % (45.5-73.1); Platelet Count Result 252 k/mm3 (150-375); Red Blood Count 5.28 M/mm3 (4.6-6.20); Red Cell Distribution Width 13.8 % (11.5-14.5); White Blood Count 9.6 K/mm3 (4.5-10.0)
[2023-01-12 21:32] LABS: Alanine Aminotransferase 27 U/L (6-50); Albumin Level 4.6 g/dL (3.5-5.1); Alkaline Phosphatase 102 U/L (38-126); Anion Gap 10 mmol/L (8-16); Aspartate Amino Transferase 23 U/L (17-59); Bilirubin,Total 0.6 mg/dL (0.2-1.3); Blood Urea Nitrogen 25 mg/dL (9-20); Calcium 9.3 mg/dL (8.4-10.2); Carbon Dioxide 22 mmol/L (22-30); Chloride 104 mmol/L (98-107); Estimated CRCL calculation 60 ml/min; Estimated Glomerular Filt Rate 41; Glucose 122 mg/dL (65-110); Lipase 91 U/L (23-300); Potassium 4.5 mmol/L (3.4-5.0); Sodium 136 mmol/L (137-145)
[2023-01-13] VITALS (9 sets, daily range): BP systolic 124–174; BP diastolic 65–84; PULSE 72–92; RESP 13–19; O2SAT 94–100
--- NOTE | 2023-01-13 02:17 | PC.NURSE ---
notified MD lópez of patient coming in for sudden onset of dizziness at 1900 with gait disturbance and nausea vomiting and headache, bilateral tingling in hands. patient is alert and oriented x4. patient also c/o headache.
[2023-01-13 02:21] LABS: Appearance Urine Clear (Clear); Bilirubin Urine Negative (Negative); Blood Urine Negative (Negative); Color Urine Yellow (Yellow); Glucose Urine UA 3+ mg/dL (Negative); Ketones Urine 1+ mg/dL (Negative); Leukocyte Esterase Ur Negative LEU/UL (Negative); Nitrate Urine Negative (Negative); Protein Urine Negative (Negative); Specific Grav Ur 1.027 (1.001-1.035); Urobilinogen Urine 0.2 mg/dL (<2.0); pH Urine 5.5 (5.0-9.0)
[2023-01-13 02:27] LABS: Add Urine Microscopic? YES
[2023-01-13] MEDS: MECLIZINE HCL 25 MG TABLET PO (04:43)
[2023-01-13] MEDS: SODIUM CHLORIDE 0.9% IV 1,000 ML 999 ML IV CONT (04:43)
[2023-01-13] MEDS: ONDANSETRON INJ 4 MG/2 ML VIAL IV PUSH (04:43)
[2023-01-13] MEDS: SCOPOLAMINE 1.5 MG PATCH TRANSDERM (04:51)
--- NOTE | 2023-01-13 05:09 | ED.GENADULT ---
HPI - General Adult General Chief complaint: Dizziness <Arturo Castro MD - Last Filed: 01/13/23 19:12> Stated complaint: dizzy, vomiting, numbness to bilateral hands <Arturo Castro MD - Last Filed: 01/13/23 19:12> Time Seen by Provider: 01/13/23 03:15 <Arturo Castro MD - Last Filed: 01/13/23 19:12> History of Present Illness HPI narrative: This is a 67-year-old male presenting ED with a chief complaint of dizziness. At 7:00 p.m. the patient stood up from his recliner and started to experience a vertigo sensation. This sensation is triggerable whenever he moves his head. Associated with acute nausea/vomiting and numbness and tingling in his hands bilaterally. There was no focal weakness or facial droop. There was no double vision, dysphagia, dysarthria, dystaxia. patient is asymptomatic if he does not move his head. Patient denies any recent illness, recent nausea vomiting or diarrhea. <Arturo Castro MD - Last Filed: 01/13/23 19:12> Related Data Home medications: Home Medications Medication Instructions Recorded Confirmed ascorbic acid (vitamin C) 1,000 mg 1,000 mg PO DAILY 02/20/20 01/07/23 tablet (Vitamin C) cetirizine 10 mg capsule (Zyrtec) 10 mg PO DAILY 02/20/20 01/07/23 hqajwocgeryv-deh-izjom acid-vit 1 tablet PO DAILY 01/28/22 01/07/23 K-lycop 400 mcg-20 mcg-370 mcg tablet (Men's 50 Plus Multivitamin) terbinafine HCl 250 mg tablet 250 mg PO DAILY 01/28/22 01/07/23 vitamin B complex 1 cap PO DAILY 01/28/22 01/07/23 vitamin E (dl, acetate) 450 mg 900 mg PO DAILY 01/28/22 01/07/23 (1,000 unit) capsule <Arturo Castro MD - Last Filed: 01/13/23 19:12> Allergies/adverse reactions: Allergies Allergy/AdvReac Type Severity Reaction Status Date / Time amoxicillin [From Augmentin] Allergy Rash Verified 01/13/23 01:47 clavulanic acid Allergy Rash Verified 01/13/23 01:47 [From Augmentin] canagliflozin [From Invokana] AdvReac Intermediate Ofelia Verified 01/13/23 01:47 Infection <Arturo Castro MD - Last Filed: 01/13/23 19:12> [facility] Past Medical History Medical History: Medical History Arthritis Complicated UTI (urinary tract infection) Frequent urination Left inguinal hernia Normocytic anemia Peripheral neuropathy Staph infection left leg <Arturo Castro MD - Last Filed: 01/13/23 19:12> Surgical History Surgical History: Surgical History History of vasectomy 1986 Hx of tonsillectomy <Arturo Castro MD - Last Filed: 01/13/23 19:12> Family History Family History: Family History Father Renal disease Hypertension Heart disease Grandparent Asthma Daughter Asthma Diabetes mellitus Son Cerebrovascular accident <Arturo Castro MD - Last Filed: 01/13/23 19:12> Social History Social History: Social History Smoking status: Never smoker Second hand tobacco smoke exposure: No Alcohol intake: never Drinks per week: 0 Substance use: never Substance use type: does not use Living arrangements: with family Occupation/Education: retired Gender identity (if verbalized by the patient): Male Sexual Orientation (if Verbalized by the Patient): Straight or Heterosexual Spiritual care concerns: No Agree to blood products: Yes <Arturo Castro MD - Last Filed: 01/13/23 19:12> Exam Narrative: APPEARANCE: No apparent distress. patient is pleasant polite during the interview, patient becomes lightheaded with some vertiginous symptoms when he sits up. Head: atraumatic. EYES: EOMI, NOSE: Atraumatic NECK: Trachea midline RESPIRATORY: No increased rate of breathing clear to auscultation bilaterally CARDIOVASCULAR: RRR, Equal pulses in all extremities ABDOMI
--- NOTE | 2023-01-13 05:17 | ECG_ITS ---
Measurements Intervals [place] Rate: 81 P: -44 SC: 199 QRS: -67 QRSD: 177 T: 4 QT: 427 QTc: 496 Interpretive Statements SINUS RHYTHM RIGHT BUNDLE BRANCH BLOCK LEFT ANTERIOR FASCICULAR BLOCK CONSIDER ANTEROSEPTAL INFARCT, AGE INDETERMINATE INFERIOR INFARCT, AGE INDETERMINATE ABNORMAL ECG COMPARED TO ECG 02/19/2020 18:40:52 SINUS RHYTHM NOW PRESENT LEFT ANTERIOR FASCICULAR BLOCK NOW PRESENT Electronically Signed On 01-13-2023 6:55:56 STOVE MECHANIC by Tom Heath D.O.
--- NOTE | 2023-01-13 05:25 | PC.NURSE ---
patient attempted to walk at this time. patient still c/o dizziness and unsteady while walking. MD Castro notified.
[2023-01-13] MEDS: METOCLOPRAMIDE HCL INJ 10 MG/2 ML VIAL IV PUSH (05:37)
[2023-01-13] MEDS: diazePAM INJ (*CRX) 10 MG/2 ML SYRINGE IM (06:48)
== END 2023-01-13 08:39 | disposition home or self-care (01) ==
PROVIDERS: General Practice; Emergency Provider Emergency Medicine; PCP Family Medicine Adolescent Medicine
DX: R42 Dizziness and giddiness (principal); M19.90 Unspecified osteoarthritis, unspecified site
CPT/HCPCS: 36415; 70496; 70498; 80053; 81001; 83690; 85025; 93005; 96361; 96372; 96374; 96375; 99284; A9270; J2405; J2765; J3360; J7030; Q9967

== ENCOUNTER 2023-02-10 11:30 | Outpatient (CLI) | payer OTHER, SELFPAY ==
[2023-02-10 12:07] LABS: Cholesterol 184 mg/dL (0-200); HDL Direct 34 mg/dL; Triglycerides 173 mg/dL (<150)
[2023-02-10 12:08] LABS: Alanine Aminotransferase 28 U/L (6-50); Aspartate Amino Transferase 33 U/L (17-59)
[2023-02-10 12:18] LABS: LDL Cholesterol Direct 122 mg/dL
[2023-02-10 13:09] LABS: Hemoglobin A1C 7.8 % (<5.7)
[2023-02-10 14:46] LABS: Prostate Specific Antigen 1.1 ng/mL (< OR = 4.0)
== END 2023-02-10 11:31 | disposition home or self-care (01) ==
PROVIDERS: Physician Assistant; PCP Family Medicine Adolescent Medicine; Visit Provider Podiatrist Foot & Ankle Surgery
DX: B35.1 Tinea unguium (principal); I12.9 Hypertensive chronic kidney disease with stage 1 through stage 4 chronic kidney disease, or unspecified chronic kidney disease; N18.31 Chronic kidney disease, stage 3a; E11.42 Type 2 diabetes mellitus with diabetic polyneuropathy; Z12.5 Encounter for screening for malignant neoplasm of prostate; Z78.9 Other specified health status
CPT/HCPCS: 36415; 80061; 83036; 84153; 84450; 84460; G0103

== ENCOUNTER 2023-07-03 13:32 | Outpatient (CLI) | payer MEDICARE, SELFPAY ==
[2023-07-03 14:09] LABS: Alanine Aminotransferase 28 U/L (6-50); Albumin Level 4.6 g/dL (3.5-5.1); Alkaline Phosphatase 97 U/L (38-126); Anion Gap 10 mmol/L (8-16); Aspartate Amino Transferase 23 U/L (17-59); Bilirubin,Total 0.5 mg/dL (0.2-1.3); Blood Urea Nitrogen 22 mg/dL (9-20); Calcium 10.1 mg/dL (8.4-10.2); Carbon Dioxide 23 mmol/L (22-30); Chloride 103 mmol/L (98-107); Cholesterol 111 mg/dL (0-200); Estimated Glomerular Filt Rate 55; Glucose 127 mg/dL (65-110); HDL Direct 37 mg/dL; Potassium 5.2 mmol/L (3.4-5.0); Sodium 136 mmol/L (137-145); Triglycerides 136 mg/dL (<150)
[2023-07-03 14:19] LABS: Hemoglobin A1C 7.1 % (<5.7)
[2023-07-03 14:20] LABS: LDL Cholesterol Direct 61 mg/dL
== END 2023-07-03 13:33 | disposition home or self-care (01) ==
PROVIDERS: PCP Family Medicine Adolescent Medicine; Visit Provider Nurse Practitioner Family
DX: E11.42 Type 2 diabetes mellitus with diabetic polyneuropathy (principal); E78.5 Hyperlipidemia, unspecified
CPT/HCPCS: 36415; 80053; 80061; 83036

== ENCOUNTER 2024-08-08 14:56 | Outpatient (CLI) | payer MEDICARE, SELFPAY ==
--- NOTE | ~2024-08-08 | XR_ITS ---
EXAMINATION: XR chest 2V Exam Date/Time: 08/08/2024 14:58 CDT HISTORY: R06.00 - Dyspnea, unspecified Comparison: 02/19/2020. RESULT: Lines, tubes, and devices: None. Lungs and pleura: Clear. Cardiomediastinal silhouette: Stable. Other: No acute osseous or upper abdominal finding. IMPRESSION: No acute cardiopulmonary process. Reviewed, dictated and finalized at location K.
== END 2024-08-08 14:57 | disposition home or self-care (01) ==
PROVIDERS: PCP Family Medicine Adolescent Medicine; Visit Provider Family Medicine Adolescent Medicine
DX: R06.00 Dyspnea, unspecified (principal)
CPT/HCPCS: 71046

== ENCOUNTER 2025-02-12 14:28 | Outpatient (CLI) | payer MEDICARE, SELFPAY ==
--- NOTE | ~2025-02-12 | MR_ITS ---
EXAMINATION: MR brain/brain stem wo/w con DATE: 02/12/2025 15:57 INDICATION: TECHNIQUE: Magnetic resonance imaging (MRI) of the brain and brainstem was performed without and with the administration of intravenous contrast (20 mL ProHance). COMPARISON: None. Reference is made to a CTA of the head and neck performed 01/13/2023 FINDINGS: No restricted diffusion is identified to suggest acute cerebral infarction. No abnormal signal intensity on gradient echo imaging to suggest acute or subacute hemorrhage The ventricles are symmetric and unremarkable in size. No abnormal extra-axial fluid collections. No abnormal contrast enhancement. Increased T2 signal intensity within the left maxillary sinus without abnormal contrast enhancement. These findings are similar in morphology to CT examination of the brain performed in 2022 No nonspecific increased T2 weighted signal intensity in the periventricular white matter to suggest microvascular ischemic disease or a demyelinating disorder. IMPRESSION: No acute cerebral infarction. No acute or subacute hemorrhage. Inflammatory change within the left maxillary sinus. Examination is otherwise unremarkable, as detailed above. Reviewed, dictated and finalized at location A.
== END 2025-02-12 14:29 | disposition home or self-care (01) ==
PROVIDERS: PCP Family Medicine Adolescent Medicine; Visit Provider Nurse Practitioner Family
DX: J01.00 Acute maxillary sinusitis, unspecified (principal); G45.9 Transient cerebral ischemic attack, unspecified
CPT/HCPCS: 70553; A9579

== ENCOUNTER 2025-04-12 12:52 | Outpatient (CLI) | payer MEDICARE, SELFPAY ==
--- NOTE | ~2025-04-12 | MR_ITS ---
MRI of the lumbar spine Clinical History: Back pain Technique: Axial T2-weighted images, and sagittal T1-weighted, T2-weighted, and T2 fat-sat images wer e acquired. Findings: No acute fracture identified. There are chronic bilateral L5 pars interarticularis defects, with 6 mm anterolisthesis of L5 over S1. No suspicious bone marrow signal abnormality seen. At L1-L2, there is severe degenerative disc 9. There is minimal disc bulge and mild to moderate facet arthropathy. There is moderate central canal stenosis/thecal sac compression. There is severe bilate ral neural foraminal narrowing. At L2-L3, there is moderate to advanced degenerative disc narrowing. Mild disc bulge and mild to mode rate facet arthropathy are present, with moderate central canal stenosis/thecal sac compression. Ther e is severe bilateral neural foraminal narrowing, right worse than left. At L3-L4, there is advanced degenerative disc narrowing. Disc bulge and facet arthropathy result in s evere spinal canal stenosis/thecal sac compression. There is severe right neural foraminal narrowing, and moderate to severe left neural foraminal narrowing. At L4-L5, there is minimal disc bulge and moderate facet arthropathy. No central canal stenosis. Ther e is severe bilateral neural foraminal narrowing. At L5-S1, there is severe degenerative disc narrowing. There is diffuse disc bulge and mild facet art hropathy. There is mild central canal stenosis. There is severe bilateral neural foraminal compromise . Paravertebral soft tissues are unremarkable. Impression: Severe degenerative spondylosis throughout the lumbar spine, with multilevel spinal canal stenosis an d severe neural foraminal narrowing. Please see details above. Bilateral L5 pars interarticularis defects, with 6 mm anterolisthesis of L5 over S1. Reviewed, dictated and finalized at [facility]. Impression: Severe degenerative spondylosis throughout the lumbar spine, with multilevel sp inal canal stenosis and severe neural foraminal narrowing. Please see details a jose. Bilateral L5 pars interarticularis defects, with 6 mm anterolisthesis of L5 ove r S1.
== END 2025-04-12 12:53 | disposition home or self-care (01) ==
PROVIDERS: Visit Provider Family Medicine Adolescent Medicine
DX: M47.816 Spondylosis without myelopathy or radiculopathy, lumbar region (principal); M43.17 Spondylolisthesis, lumbosacral region; M48.061 Spinal stenosis, lumbar region without neurogenic claudication; M48.07 Spinal stenosis, lumbosacral region; M54.30 Sciatica, unspecified side
CPT/HCPCS: 72148

== ENCOUNTER 2025-10-12 16:17 | Outpatient (CLI) | payer MEDICARE, SELFPAY ==
--- NOTE | ~2025-10-12 | XR_ITS ---
XR lumbar spine min 4V Indication: M48.061 - Spinal stenosis, lumbar region without neurogen... Comparison: None Findings: There is a levoconvex scoliosis. Moderate to severe loss of vertebral height throughout. No acute fracture is identified. Grade 1 anterolisthesis of L5 on S1. Severe loss of disc height throughout. Soft tissues unremarkable Impression: No acute abnormality. Reviewed, dictated and finalized at location P. [employer] Impression: No acute abnormality.
== END 2025-10-12 16:18 | disposition home or self-care (01) ==
LOC: MICIMG 16:19
PROVIDERS: PCP Neurological Surgery; Visit Provider Neurological Surgery
DX: M48.061 Spinal stenosis, lumbar region without neurogenic claudication (principal)
CPT/HCPCS: 72110